=== PATIENT | female | born 1960 | race Caucasian/White ===

== ENCOUNTER 2020-04-11 08:32 | Outpatient (REF) | payer OTHER, SELFPAY ==
[2020-04-11 11:56] LABS: Basophils Percent Auto 0.6 % (0-2); Eosinophils Absolute Auto 0.2 X10*3/uL (0.0-0.4); Eosinophils Percent Auto 2.6 % (0-4); Hematocrit 42.5 % (37-47); Hemoglobin 14.3 g/dl (12.0-16.0); Imm Gran Abs Auto 0.03 X10*3/uL (0.00-0.03); Imm Gran Pct Auto 0.4 % (0.0-0.4); Lymphocytes Absolute Auto 1.6 X10*3/uL (1.2-4.9); Lymphocytes Percent Auto 23.1 % (20-40); MANUAL DIFF FLAG NO; Mean Corpuscular HGB Conc 33.6 g/dl (31.0-35.0); Mean Corpuscular Hemoglobin 30.4 pg (27.0-33.0); Mean Corpuscular Volume 90.4 fL (80-98); Mean Platelet Volume 10.2 fL (9.4-12.3); Monocytes Absolute Auto 0.6 X10*3/uL (0.1-1.2); Monocytes Percent Auto 8.7 % (2-11); Neutrophils Absolute Auto 4.5 X10*3/uL (2.0-8.3); Neutrophils Percent Auto 64.6 % (45-73); Platelet Count 329 X10*3/uL (160-400); Red Cell Distribution Width 12.7 % (11.0-16.0)
[2020-04-11 12:25] LABS: C Reactive Protein 1.02 mg/dL (< or = 0.50)
[2020-04-12 21:31] LABS: EBV-NA IgG Index <18.00 U/mL
[2020-04-12 23:27] LABS: Anti Nuclear Antibody Screen POSITIVE (NEGATIVE)
== END 2020-04-11 08:33 | disposition home or self-care (01) ==
LOC: HO.MANLDS 08:32
PROVIDERS: PCP Internal Medicine; Visit Provider Internal Medicine
DX: B27.00 Gammaherpesviral mononucleosis without complication (principal)
CPT/HCPCS: 36415; 85025; 86038; 86039; 86140; 86664; 86665

== ENCOUNTER 2020-05-30 09:42 | Outpatient (REF) | payer OTHER, SELFPAY ==
[2020-05-31 21:42] LABS: EBV-NA IgG Index <18.00 U/mL
== END 2020-05-30 09:43 | disposition home or self-care (01) ==
LOC: HO.MANLDS 09:42
PROVIDERS: PCP Physician Assistant; Visit Provider Physician Assistant
DX: R53.83 Other fatigue (principal)
CPT/HCPCS: 86664; 86665

== ENCOUNTER 2020-06-06 14:22 | Outpatient (REF) | payer OTHER, SELFPAY ==
[2020-06-06 18:36] LABS: SARS COV2 IgG Negative (Negative)
== END 2020-06-06 14:23 | disposition home or self-care (01) ==
LOC: HO.MANLDS 14:22
PROVIDERS: PCP Internal Medicine; Visit Provider Internal Medicine
DX: R43.1 Parosmia (principal)
CPT/HCPCS: 86769

== ENCOUNTER 2020-10-14 09:01 | Outpatient (REF) | payer OTHER, SELFPAY ==
[2020-10-14 10:56] LABS: MANUAL DIFF FLAG NO
[2020-10-14 11:05] LABS: Basophils Percent Auto 0.6 % (0-2); Eosinophils Absolute Auto 0.2 X10*3/uL (0.0-0.4); Eosinophils Percent Auto 3.4 % (0-4); Hematocrit 42.9 % (37-47); Hemoglobin 14.1 g/dl (12.0-16.0); Imm Gran Abs Auto 0.03 X10*3/uL (0.00-0.03); Imm Gran Pct Auto 0.4 % (0.0-0.4); Lymphocytes Absolute Auto 1.6 X10*3/uL (1.2-4.9); Lymphocytes Percent Auto 23.8 % (20-40); Mean Corpuscular HGB Conc 32.9 g/dl (31.0-35.0); Mean Corpuscular Hemoglobin 28.6 pg (27.0-33.0); Mean Platelet Volume 10.2 fL (9.4-12.3); Monocytes Absolute Auto 0.5 X10*3/uL (0.1-1.2); Monocytes Percent Auto 7.9 % (2-11); Neutrophils Absolute Auto 4.3 X10*3/uL (2.0-8.3); Neutrophils Percent Auto 63.9 % (45-73); Platelet Count 385 X10*3/uL (160-400); Red Blood Count 4.93 X10*6/uL (4.20-5.50); Red Cell Distribution Width 12.7 % (11.0-16.0); White Blood Count 6.7 X10*3/uL (4.8-10.8)
[2020-10-14 11:12] LABS: Estimated Average Glucose 111 mg/dL; Hemoglobin A1c % 5.5 %
[2020-10-14 12:07] LABS: Ferritin 93 ng/mL (10-250); Free T4 (Free Thyroxine) 1.01 ng/dL (0.71-1.85); Thyroid Stimulating Hormone 1.98 uIU/mL (0.32-4.0)
[2020-10-14 12:08] LABS: Alanine Aminotransferase 13 U/L (0-31); Albumin Level 4.4 g/dL (3.5-5.0); Alkaline Phosphatase 78 U/L (39-117); Anion Gap 12 (12-20); Aspartate Amino Transferase 16 U/L (5-31); Bilirubin Total 0.5 mg/dL (0.0-1.0); Blood Urea Nitrogen 16 mg/dL (9-16); Calcium 9.1 mg/dL (8.4-10.2); Carbon Dioxide 29 mmol/L (22-29); Chloride 102 mmol/L (96-108); Cholesterol 172 mg/dL; Estimated Glomerular Filt Rate > 60; Glucose Fasting 87 mg/dL (60-99); HDL Cholesterol 39 mg/dL; Iron 87 mcg/dL (30-160); LDL Cholesterol Calculated 115 mg/dl; Percent Iron Saturation 26 % (15-50); Potassium 4.1 mmol/L (3.3-5.1); Sodium 139 mmol/L (135-145); Total Iron Binding Capacity 331 mcg/dL (228-428); Total Protein 6.8 g/dL (6.5-8.0); Triglycerides 93 mg/dL; Unsaturated Iron Binding 244 ug/dL
[2020-10-14 12:24] LABS: Vitamin B12 > 2000 pg/mL (200-900)
[2020-10-15 05:51] LABS: EBV-VCA IgG Ab >750.00 U/mL
[2020-10-17 13:43] LABS: Calcium (PTHI) 9.3 mg/dL (8.6-10.4); PTHI 73 pg/mL (14-64)
== END 2020-10-14 09:02 | disposition home or self-care (01) ==
LOC: HO.MANLDS 09:01
PROVIDERS: PCP Internal Medicine; Visit Provider Internal Medicine
DX: R53.83 Other fatigue (principal); E78.00 Pure hypercholesterolemia, unspecified; R73.9 Hyperglycemia, unspecified; E83.52 Hypercalcemia
CPT/HCPCS: 36415; 80053; 80061; 82607; 82728; 83036; 83540; 83970; 84439; 84443; 85025; 86664; 86665

== ENCOUNTER 2020-11-30 11:34 | Outpatient (REF) | payer OTHER, SELFPAY ==
[2020-11-30 13:12] LABS: C Reactive Protein 3.31 mg/dL (< or = 0.50)
[2020-11-30 13:28] LABS: Free T4 (Free Thyroxine) 1.03 ng/dL (0.71-1.85); Thyroid Stimulating Hormone 2.01 uIU/mL (0.32-4.0)
== END 2020-11-30 11:35 | disposition home or self-care (01) ==
LOC: HO.MANLDS 11:34
PROVIDERS: PCP Physician Assistant; Visit Provider Physician Assistant
DX: R53.83 Other fatigue (principal)
CPT/HCPCS: 36415; 84439; 84443; 86140; 86664; 86665

== ENCOUNTER 2021-03-22 11:18 | Outpatient (REF) | payer OTHER, SELFPAY ==
[2021-03-22 12:46] LABS: MANUAL DIFF FLAG NO
[2021-03-22 12:52] LABS: Basophils Percent Auto 0.4 % (0-2); Eosinophils Absolute Auto 0.1 X10*3/uL (0.0-0.4); Eosinophils Percent Auto 1.7 % (0-4); Hemoglobin 14.8 g/dl (12.0-16.0); Imm Gran Abs Auto 0.03 X10*3/uL (0.00-0.03); Imm Gran Pct Auto 0.4 % (0.0-0.4); Lymphocytes Absolute Auto 1.8 X10*3/uL (1.2-4.9); Lymphocytes Percent Auto 23.6 % (20-40); Mean Corpuscular HGB Conc 32.9 g/dl (31.0-35.0); Mean Corpuscular Hemoglobin 29.2 pg (27.0-33.0); Mean Corpuscular Volume 88.9 fL (80-98); Mean Platelet Volume 10.6 fL (9.4-12.3); Monocytes Absolute Auto 0.6 X10*3/uL (0.1-1.2); Monocytes Percent Auto 7.9 % (2-11); Platelet Count 341 X10*3/uL (160-400); Red Blood Count 5.06 X10*6/uL (4.20-5.50); Red Cell Distribution Width 13.2 % (11.0-16.0); White Blood Count 7.6 X10*3/uL (4.8-10.8)
[2021-03-22 13:23] LABS: Alanine Aminotransferase 15 U/L (0-31); Albumin Level 4.4 g/dL (3.5-5.0); Alkaline Phosphatase 79 U/L (39-117); Anion Gap 12 (12-20); Aspartate Amino Transferase 16 U/L (5-31); Bilirubin Total 0.6 mg/dL (0.0-1.0); Blood Urea Nitrogen 16 mg/dL (9-16); Calcium 9.3 mg/dL (8.4-10.2); Carbon Dioxide 28 mmol/L (22-29); Chloride 105 mmol/L (96-108); Estimated Glomerular Filt Rate > 60; Glucose Random 83 mg/dL (60-115); Iron 86 mcg/dL (30-160); Percent Iron Saturation 24 % (15-50); Potassium 3.9 mmol/L (3.3-5.1); Sodium 141 mmol/L (135-145); Total Iron Binding Capacity 353 mcg/dL (228-428); Total Protein 6.9 g/dL (6.5-8.0); Unsaturated Iron Binding 267 ug/dL
[2021-03-22 13:46] LABS: Ferritin 58 ng/mL (10-250); Free T4 (Free Thyroxine) 1.08 ng/dL (0.71-1.85); Thyroid Stimulating Hormone 0.78 uIU/mL (0.32-4.0); Vitamin D 25-OH Total 38.5 ng/mL (>30)
[2021-03-22 14:04] LABS: Folate 9.3 ng/mL (> or = 4.0); Vitamin B12 336 pg/mL (200-900)
[2021-03-22 14:13] LABS: Erythrocyte Sedimentation Rate 2 MM/HR (0-20)
[2021-03-23 08:30] LABS: Lyme Abs Screen <0.90 index
[2021-03-24 12:12] LABS: Calcium (PTHI) 9.3 mg/dL (8.6-10.4); PTHI 70 pg/mL (14-64)
== END 2021-03-22 11:19 | disposition home or self-care (01) ==
LOC: HO.MANLDS 11:18
PROVIDERS: PCP Physician Assistant; Visit Provider Physician Assistant
DX: R53.83 Other fatigue (principal)
CPT/HCPCS: 36415; 80053; 82306; 82607; 82728; 82746; 83540; 83970; 84439; 84443; 85025; 85652; 86140; 86617; 86618; 86664; 86665

== ENCOUNTER 2021-08-16 08:55 | Outpatient (REF) | payer OTHER, SELFPAY ==
[2021-08-18 07:12] LABS: Thyroglobulin Antibodies <1 IU/mL (< or = 1); Thyroid Peroxidase Antibodies 1 IU/mL (<9)
[2021-08-22 10:06] LABS: Thyrotropin Receptor Antibody <1.00 IU/L (<=2.00)
== END 2021-08-16 08:56 | disposition home or self-care (01) ==
LOC: HO.MANLDS 08:55
PROVIDERS: PCP Internal Medicine; Visit Provider Internal Medicine
DX: E02 Subclinical iodine-deficiency hypothyroidism (principal)
CPT/HCPCS: 36415; 83520; 84443; 86376; 86800

== ENCOUNTER 2021-11-08 09:35 | Outpatient (REF) | payer OTHER, SELFPAY ==
[2021-11-08 11:01] LABS: Hematocrit 45.8 % (37.0-47.0); Hemoglobin 15.3 g/dl (12.0-16.0); Mean Corpuscular HGB Conc 33.4 g/dl (31.0-35.0); Mean Corpuscular Hemoglobin 30.1 pg (27.0-33.0); Mean Platelet Volume 10.3 fL (9.4-12.3); Platelet Count 337 X10*3/uL (160-400); Red Blood Count 5.09 X10*6/uL (4.20-5.50); Red Cell Distribution Width 13.1 % (11.0-16.0); White Blood Count 8.2 X10*3/uL (4.8-10.8)
[2021-11-08 11:15] LABS: Alanine Aminotransferase 17 U/L (0-31); Albumin Level 4.5 g/dL (3.5-5.0); Alkaline Phosphatase 78 U/L (39-117); Anion Gap 13 (12-20); Aspartate Amino Transferase 18 U/L (5-31); Bilirubin Total 0.7 mg/dL (0.0-1.0); Blood Urea Nitrogen 17 mg/dL (9-16); Calcium 9.7 mg/dL (8.4-10.2); Carbon Dioxide 29 mmol/L (22-29); Chloride 101 mmol/L (96-108); Estimated Glomerular Filt Rate 57; Glucose Fasting 89 mg/dL (60-99); Potassium 4.3 mmol/L (3.3-5.1); Sodium 139 mmol/L (135-145); Total Protein 7.2 g/dL (6.5-8.0)
[2021-11-08 11:53] LABS: Erythrocyte Sedimentation Rate 3 MM/HR (0-20)
== END 2021-11-08 09:36 | disposition home or self-care (01) ==
LOC: HO.MANLDS 09:35
PROVIDERS: PCP Internal Medicine; Visit Provider Internal Medicine
DX: R51.9 Headache, unspecified (principal)
CPT/HCPCS: 36415; 80053; 85027; 85652

== ENCOUNTER 2022-02-26 14:08 | Outpatient (REF) | payer OTHER, SELFPAY ==
[2022-02-26 16:27] LABS: MANUAL DIFF FLAG NO
[2022-02-26 16:29] LABS: Basophils Percent Auto 0.5 % (0-2); Eosinophils Absolute Auto 0.1 X10*3/uL (0.0-0.4); Eosinophils Percent Auto 1.8 % (0-4); Hematocrit 44.6 % (37.0-47.0); Hemoglobin 14.6 g/dl (12.0-16.0); Imm Gran Abs Auto 0.03 X10*3/uL (0.00-0.03); Imm Gran Pct Auto 0.4 % (0.0-0.4); Lymphocytes Absolute Auto 1.6 X10*3/uL (1.2-4.9); Lymphocytes Percent Auto 21.2 % (20-40); Mean Corpuscular HGB Conc 32.7 g/dl (31.0-35.0); Mean Corpuscular Hemoglobin 29.6 pg (27.0-33.0); Mean Corpuscular Volume 90.3 fL (80.0-98.0); Mean Platelet Volume 10.2 fL (9.4-12.3); Monocytes Absolute Auto 0.6 X10*3/uL (0.1-1.2); Monocytes Percent Auto 7.7 % (2-11); Neutrophils Percent Auto 68.4 % (45-73); Platelet Count 327 X10*3/uL (160-400); Red Blood Count 4.94 X10*6/uL (4.20-5.50); Red Cell Distribution Width 12.7 % (11.0-16.0); White Blood Count 7.4 X10*3/uL (4.8-10.8)
[2022-02-26 16:37] LABS: Prothrombin Time 11.2 SEC (10.0-13.1)
[2022-02-26 16:40] LABS: Partial Thromboplastin Time 29.7 SEC (26.0-36.4)
[2022-02-26 16:45] LABS: Alanine Aminotransferase 17 U/L (0-31); Albumin Level 4.4 g/dL (3.5-5.0); Alkaline Phosphatase 79 U/L (39-117); Anion Gap 14 (12-20); Aspartate Amino Transferase 18 U/L (5-31); Bilirubin Total 0.5 mg/dL (0.0-1.0); Blood Urea Nitrogen 15 mg/dL (9-16); Calcium 9.3 mg/dL (8.4-10.2); Carbon Dioxide 30 mmol/L (22-29); Chloride 101 mmol/L (96-108); Estimated Glomerular Filt Rate > 60; Glucose Random 93 mg/dL (60-115); Potassium 3.9 mmol/L (3.3-5.1); Sodium 141 mmol/L (135-145); Total Protein 6.7 g/dL (6.5-8.0)
[2022-02-26 16:51] LABS: Estimated Average Glucose 103 mg/dL; Hemoglobin A1c % 5.2 %
== END 2022-02-26 14:09 | disposition home or self-care (01) ==
LOC: HO.MANLDS 14:08
PROVIDERS: Visit Provider Physician Assistant
DX: I48.0 Paroxysmal atrial fibrillation (principal)
CPT/HCPCS: 36415; 80053; 83036; 85025; 85610; 85730

== ENCOUNTER 2022-10-15 10:46 | Outpatient (REF) | payer OTHER, SELFPAY ==
[2022-10-15 12:38] LABS: MANUAL DIFF FLAG NO
[2022-10-15 12:47] LABS: Basophils Percent Auto 0.2 % (0-2); Hemoglobin 16.2 g/dl (12.0-16.0); Imm Gran Abs Auto 0.05 X10*3/uL (0.00-0.03); Imm Gran Pct Auto 0.4 % (0.0-0.4); Lymphocytes Percent Auto 7.8 % (20-40); Mean Corpuscular HGB Conc 34.5 g/dl (31.0-35.0); Mean Corpuscular Hemoglobin 30.5 pg (27.0-33.0); Mean Corpuscular Volume 88.5 fL (80.0-98.0); Monocytes Absolute Auto 0.5 X10*3/uL (0.1-1.2); Monocytes Percent Auto 3.9 % (2-11); Neutrophils Absolute Auto 10.7 x10*3/uL (2.0-8.3); Neutrophils Percent Auto 87.7 % (45-73); Platelet Count 402 X10*3/uL (160-400); Red Blood Count 5.31 X10*6/uL (4.20-5.50); White Blood Count 12.2 X10*3/uL (4.8-10.8)
[2022-10-15 13:00] LABS: Alanine Aminotransferase 23 U/L (0-31); Albumin Level 4.4 g/dL (3.5-5.0); Alkaline Phosphatase 77 U/L (39-117); Anion Gap 14 (12-20); Aspartate Amino Transferase 24 U/L (5-31); Bilirubin Total 0.7 mg/dL (0.0-1.0); Blood Urea Nitrogen 17 mg/dL (9-16); C Reactive Protein 0.45 mg/dL (< or = 0.50); Calcium 9.4 mg/dL (8.4-10.2); Carbon Dioxide 26 mmol/L (22-29); Chloride 102 mmol/L (96-108); Estimated Glomerular Filt Rate 56; Glucose Random 115 mg/dL (60-115); Potassium 4.4 mmol/L (3.3-5.1); Sodium 138 mmol/L (135-145); Total Protein 6.8 g/dL (6.5-8.0)
[2022-10-15 13:22] LABS: Erythrocyte Sedimentation Rate 2 MM/HR (0-20)
== END 2022-10-15 10:47 | disposition home or self-care (01) ==
LOC: HO.MANLDS 10:46
PROVIDERS: Visit Provider Internal Medicine
DX: M25.551 Pain in right hip (principal)
CPT/HCPCS: 36415; 80053; 85025; 85652; 86140

== ENCOUNTER 2022-12-17 13:29 | Outpatient (REF) | payer OTHER, SELFPAY ==
[2022-12-17 17:52] LABS: MANUAL DIFF FLAG NO
[2022-12-17 17:57] LABS: Basophils Percent Auto 0.4 % (0-2); Eosinophils Absolute Auto 0.1 X10*3/uL (0.0-0.4); Eosinophils Percent Auto 1.1 % (0-4); Hematocrit 46.4 % (37.0-47.0); Hemoglobin 15.4 g/dl (12.0-16.0); Imm Gran Abs Auto 0.02 X10*3/uL (0.00-0.03); Imm Gran Pct Auto 0.2 % (0.0-0.4); Lymphocytes Absolute Auto 1.4 X10*3/uL (1.2-4.9); Mean Corpuscular HGB Conc 33.2 g/dl (31.0-35.0); Mean Corpuscular Hemoglobin 30.9 pg (27.0-33.0); Mean Corpuscular Volume 93.2 fL (80.0-98.0); Mean Platelet Volume 10.3 fL (9.4-12.3); Monocytes Absolute Auto 0.6 X10*3/uL (0.1-1.2); Monocytes Percent Auto 6.8 % (2-11); Neutrophils Absolute Auto 6.2 x10*3/uL (2.0-8.3); Neutrophils Percent Auto 74.5 % (45-73); Platelet Count 368 X10*3/uL (160-400); Red Blood Count 4.98 X10*6/uL (4.20-5.50); Red Cell Distribution Width 13.2 % (11.0-16.0); White Blood Count 8.4 X10*3/uL (4.8-10.8)
[2022-12-17 18:14] LABS: Estimated Average Glucose 91 mg/dL; Hemoglobin A1c % 4.8 %
[2022-12-17 18:17] LABS: Alanine Aminotransferase 13 U/L (0-31); Albumin Level 4.3 g/dL (3.5-5.0); Alkaline Phosphatase 82 U/L (39-117); Anion Gap 16 (12-20); Aspartate Amino Transferase 16 U/L (5-31); Bilirubin Total 0.8 mg/dL (0.0-1.0); Blood Urea Nitrogen 17 mg/dL (9-16); C Reactive Protein 0.77 mg/dL (< or = 0.50); Calcium 9.5 mg/dL (8.4-10.2); Carbon Dioxide 27 mmol/L (22-29); Chloride 101 mmol/L (96-108); Estimated Glomerular Filt Rate > 60; Glucose Random 108 mg/dL (60-115); Iron 126 mcg/dL (30-160); Percent Iron Saturation 42 % (15-50); Potassium 4.3 mmol/L (3.3-5.1); Sodium 140 mmol/L (135-145); Total Iron Binding Capacity 299 mcg/dL (228-428); Total Protein 6.6 g/dL (6.5-8.0); Unsaturated Iron Binding 173 ug/dL
[2022-12-17 18:48] LABS: Ferritin 113 ng/mL (10-250); Free T4 (Free Thyroxine) 1.16 ng/dL (0.71-1.85); Thyroid Stimulating Hormone 0.87 uIU/mL (0.32-4.0); Vitamin B12 989 pg/mL (200-900); Vitamin D 25-OH Total 45.7 ng/mL (>30)
[2022-12-17 18:59] LABS: Erythrocyte Sedimentation Rate 4 MM/HR (0-20)
== END 2022-12-17 13:30 | disposition home or self-care (01) ==
LOC: HO.MANLDS 13:29
PROVIDERS: Visit Provider Physician Assistant
DX: R53.83 Other fatigue (principal); E55.9 Vitamin D deficiency, unspecified; R73.01 Impaired fasting glucose; D51.9 Vitamin B12 deficiency anemia, unspecified; Z13.21 Encounter for screening for nutritional disorder
CPT/HCPCS: 36415; 80053; 82306; 82607; 82728; 82746; 83036; 83540; 84439; 84443; 85025; 85652; 86140

== ENCOUNTER 2023-09-10 09:00 | Outpatient (REF) | payer OTHER, SELFPAY ==
[2023-09-10 13:35] LABS: Appearance Urine Clear; Color Urine Yellow; Glucose Urine UA Negative (Negative); Leukocyte Esterase Urine Negative (Negative); Nitrite Urine Negative (Negative); PH 7.5 (5.0-9.0); Specific Gravity - Urine 1.025 (1.005-1.025); Urine Blood Negative (Negative); Urine Ketones Trace mg/dL (Negative); Urine Protein Negative (Neg-Trace)
== END 2023-09-10 09:01 | disposition home or self-care (01) ==
LOC: HO.MANLNP 09:00
PROVIDERS: Visit Provider Physician Assistant
DX: R30.9 Painful micturition, unspecified (principal)
CPT/HCPCS: 81003

== ENCOUNTER 2024-04-08 13:44 | Outpatient (REF) | payer OTHER, SELFPAY ==
[2024-04-08 17:56] LABS: MANUAL DIFF FLAG NO
[2024-04-08 18:12] LABS: Basophils Percent Auto 0.6 % (0-2); Eosinophils Absolute Auto 0.1 X10*3/uL (0.0-0.4); Eosinophils Percent Auto 1.7 % (0-4); Hematocrit 41.6 % (37.0-47.0); Hemoglobin 14.1 g/dl (12.0-16.0); Imm Gran Abs Auto 0.02 X10*3/uL (0.00-0.03); Imm Gran Pct Auto 0.3 % (0.0-0.4); Lymphocytes Absolute Auto 1.5 X10*3/uL (1.2-4.9); Lymphocytes Percent Auto 23.7 % (20-40); Mean Corpuscular HGB Conc 33.9 g/dl (31.0-35.0); Mean Corpuscular Hemoglobin 30.8 pg (27.0-33.0); Mean Corpuscular Volume 90.8 fL (80.0-98.0); Mean Platelet Volume 9.9 fL (9.4-12.3); Monocytes Absolute Auto 0.5 X10*3/uL (0.1-1.2); Monocytes Percent Auto 8.3 % (2-11); Neutrophils Absolute Auto 4.2 x10*3/uL (2.0-8.3); Neutrophils Percent Auto 65.4 % (45-73); Platelet Count 293 X10*3/uL (160-400); Red Blood Count 4.58 X10*6/uL (4.20-5.50); Red Cell Distribution Width 12.2 % (11.0-16.0); White Blood Count 6.4 X10*3/uL (4.8-10.8)
[2024-04-08 18:31] LABS: Rheumatoid Factor < 13.0 IU/mL (<15.0)
[2024-04-08 18:35] LABS: Alanine Aminotransferase 18 U/L (0-31); Albumin Level 4.2 g/dL (3.5-5.0); Alkaline Phosphatase 68 U/L (39-117); Anion Gap 12 (12-20); Aspartate Amino Transferase 25 U/L (5-31); Bilirubin Total 0.6 mg/dL (0.0-1.0); Blood Urea Nitrogen 18 mg/dL (9-16); C Reactive Protein 0.64 mg/dL (< or = 0.50); Calcium 8.9 mg/dL (8.4-10.2); Carbon Dioxide 30 mmol/L (22-29); Chloride 98 mmol/L (96-108); Estimated Glomerular Filt Rate > 60; Glucose Random 76 mg/dL (60-115); Phosphorus 3.4 mg/dL (2.7-4.5); Potassium 3.6 mmol/L (3.3-5.1); Sodium 136 mmol/L (135-145); Total Protein 6.5 g/dL (6.5-8.0); Uric Acid 5.6 mg/dL (2.4-5.7)
[2024-04-08 19:09] LABS: Erythrocyte Sedimentation Rate 2 MM/HR (0-20)
[2024-04-09 05:58] LABS: Parathyroid Hormone Intact 83.5 pg/mL (8.7-77.1)
[2024-04-14 14:58] LABS: Cyclic Citrullinated Peptide <16 UNITS
[2024-04-15 12:33] LABS: Anti Nuclear Antibody Screen POSITIVE (NEGATIVE); Anti Nuclear Antibody Titer 1:40 titer
== END 2024-04-08 13:45 | disposition home or self-care (01) ==
LOC: HO.MANLDS 13:44
PROVIDERS: Visit Provider Physician Assistant
DX: M79.10 Myalgia, unspecified site (principal)
CPT/HCPCS: 36415; 80053; 82550; 83735; 83970; 84100; 84550; 85025; 85652; 86038; 86039; 86140; 86200; 86431

== ENCOUNTER 2025-04-30 12:15 | Outpatient (REF) | payer MEDICARE, OTHER, SELFPAY ==
--- OUTSIDE RECORDS SUMMARY | 2025-04-30 14:21 | XMS_ITS | Encounter Summary ---
Author Organization [facility] Address [address] [place] [id number] Phone Care Team Providers Care Sales Representative Health Insurance Name Role Phone Royer Ross DO Primary Care Provider [phone] Susan Cerna Primary Care Provider [phone] Susan Cerna Primary Care Provider [phone] Encounter Details Date Type Department Care Team (Late st Contact Info) Description 03/17/2019 Ancillary Orders Virtual Department [address] [place] [address] Tori Polanco MD Breast screening Social History Tobacco Use Types Packs/Day Years Used Date Smoking Tobacco: Former Smokeless Tobacco: Former Alcohol Use Standard Drinks/Week Comments No 0 (1 standard drink = 0.6 oz pur e alcohol) Comments Unknown Sex and Gender Information Value Date Recorded Sex Assigned at Not on file Legal Sex Female 9:50 PM EDT Gender Identity Not on file Sexual Orientation Not on file documented as of this encounter Plan of Treatment Not on file documented as of this encounter Results * BI MAMMOGRAM SCREENING WITH TOMOSYNTHESIS WITH CAD (BILATERAL) (03/18/2019 10:05 AM EDT) Anatomical Region Laterality Modality Breast Left, Breast Right, Breast Bilateral Bila teral Mammography 03/18/2019 1:03 PM EDT Impressions 03/18/2019 1:06 PM EDT No mammographic evidence of malignancy. Routine annual screening mammography recommended. BI-RADS CATEGORY: 2 - Benign finding. DENSITY: The breast tissue is almost entirely fat. POS - [facility] Narrative 03/18/2019 1:06 PM EDT Standard digital full-field 2-D C view and two-plane tomographic imaging was performed and compared with multiple prior studies, most recently 11/16/2014, with utilization of computer-aided detection. The breasts are almost entirely fatty. The stromal markings are essentially unchanged in overall appearance and distribution. No dominant spiculated mass, suspicious clustered microcalcifications, or focal zone of pathologic skin thickening or retraction are noted to have arisen in the interim. Scattered benign-appearing microcalcifications, number of which are intradermal, again noted bilaterally. Procedure Note Tori Rubio MD - 03/18/2019 Standard digital full-field 2-D C view and two-plane tomographic imagingwas performed and compared with multiple prior studies, most szsoilzm41/12/2015, with utilization of computer-aided detection. The breasts are almost entirely fatty. The stromal markings areessentially unchanged in overall appearance and distribution. No dominantspiculated mass, suspicious clustered microcalcifications, or focal zoneof pathologic skin thickening or retraction are noted to have arisen inthe interim. Scattered benign-appearing microcalcifications, number ofwhich are intradermal, again noted bilaterally. IMPRESSION: No mammographic evidence of malignancy. Routine annual screeningmammography recommended. BI-RADS CATEGORY: 2 - Benign finding. DENSITY: The breast tissue is almost entirely fat. POS - [facility] Tori Polanco MD IMG MG EXAMS Final Resul t documented in this encounter Visit Diagnoses Diagnosis Breast screening Breast screening, unspecified Breast screening Breast screening, unspecified documented in this encounter Additional Health Concerns Infection Onset Date Last Indicated Resolved Time CoV-Exposed Comment:Recent close contact documented in the COVID-19 PCR/PRO order 03/14/2021 03/14/2021 03/29/2021 1:22 AM E DT CoV-Exposed Comment:Recent close contact documented in the COVID-19 PCR/PRO order 04/14/2021 04/14/2021 04/29/2021 1:22 AM E DT CoV-Risk 04/28/2021 04/28/2021 05/08/2021 1:22 AM EDT CoV-Exposed Comment:Recent close contact documented in the COVID-19 PCR/PRO order 06/05/2021 06/05/2021 06/20/2021 1:[address] CoV-Exposed Comment:Positive COVID-19 07/11/2021 07/11/2021 07/18/2021 6:0 5 PM EST COVID-19 07/17/2021 07/17/2021 08/07/2021 1:23 AM EST documented as of this encounter Care Teams Sales Representative Health Insurance Relationship Specialty Start Date End Date Royer Ross DO PCP - General 04/25/17 11/10/20 Susan Cerna PA [address] [place] [address] PCP - General 11/11/20 02/04/22 Susan Cerna PA [address] [place] [address] PCP - General 02/05/22 documented as of this encounter Additional Source Comments The information contained in this document represents components of the legal health record. It is not the complete legal health record.[facility]
--- OUTSIDE RECORDS SUMMARY | 2025-04-30 14:21 | XMS_ITS | Clinical Summary ---
Author Organization [facility] Address [address] [address] Phone Care Team Providers Care Diamond Powder Technician Name Role Phone Florinda Cerna Primary Care Provider Allergies Active Allergy Reactions Criticality Noted Date Comments Codeine Nausea and/or Vomiting 09/19/2021 Hydrocodone GI Upset 02/19/2018 Hydrocodone-Acetaminophen GI Upset 09/19/2021 Medications hydroCHLOROthia zide (HYDRODIURIL) 25 MG tablet 50 mg. Active ALPRAZolam (XANAX) 0.5 MG tablet alprazolam 0.5 mg tablet TAKE 1 TABLET BY MOUTH THREE TIMES DAILY NEEDED Active dexlansoprazole (DEXILANT) 60 mg capsule Dexilant 60 mg capsule, delayed release Active famotidine (PEPCID) 40 MG tablet Take 40 mg by mouth. Active metoprolol tartrate (LOPRESSOR) 25 MG tablet Take 25 mg by mouth 2 (two) times a day. Active atenolol (TENORMIN) 50 mg tablet atenolol 50 mg tablet Take 2 tablets twice a day by oral route. 3 Active estrogens, conjugated,-met hylTESTOSTERone (ESTRATEST HS) 0.625-1.25 mg per tabletIndicatio ns:Menopausal hot flushes take 1 tablet by mouth every day 30 tablet 5 4 Active zolpidem (AMBIEN) 10 mg tablet Take 10 mg by mouth nightly at bedtime as needed for sleep. 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 Atrial fibrillation 11/25/2020 Arthralgia of multiple sites, bilateral 11/16/19 Malaise and fatigue 11/15/2020 Thrombocytosis 10/22/2020 Elevated C-reactive protein (CRP) 10/22/2020 Pericarditis 10/22/2020 Overview (09/19/2021): Likely post-viral Gastroesophageal reflux disease 05/03/2020 Chondromalacia of patella 05/03/2020 Low back pain 05/03/2020 Inflammatory arthritis 04/05/2020 Assessment & Plan (04/05/2020 2:53 PM EDT): Otherwise healthy middle-aged woman with history of hypertension hypothyroidism and osteoarthritis comes in with questions on recurrent worsening osteoarthritic pains in both large and small joints and wondering whether she may have another connective tissue disease underlying this. Undefined any stigmata on her exam suggesting rheumatoid disease but a work-up for that as well as seronegative spondyloarthropathy will be undertaken. We had a short discussion today concerning other possibilities which would be a more aggressive systemic osteoarthritis may be secondarily to chondrocalcinosis or hyperuricemia. Amyloidosis can give a presentation such as this as well. Appropriate labs were sent off today. She will continue on meloxicam as she has been doing rather well with this will follow-up to discuss the findings by phone call and see her back as needed. Diverticulosis of large intestine without hemorr jose luis 05/07/2018 Irritable bowel syndrome 05/07/2018 History of total left knee replacement 8 Anxiety 10/09/2017 History of total right knee replacement 10/10/19 18 Impaired fasting glucose 10/09/2017 Insomnia 10/09/2017 Rotator cuff injury 10/09/2017 Essential hypertension 07/10/2017 Vaginal enterocele 10/09/2013 Overview (09/19/2021): With vault prolapse. The patient is s/p daVinci sacrocolpopexy with Dr. Dean. Exam 04/2020 shows enterocele to +1 and cuff to -2. Patient asymptomatic. History of Trung-Segura virus infection Assessment & Plan (12/13/2020 1:08 PM EDT): I reviewed infectious disease notes, cardiology notes, echocardiogram, and chest CT. I think that her acute presentation of fever and pleurisy with pericarditis is entirely consistent with EBV infection. Symptoms have markedly diminished and her acute phase reactants are not elevated and though she does have a low titer positive antinuclear antibody there are no other stigmata on exam or biochemical or serologic abnormalities indicating systemic lupus or another collagen vascular disorder. She will follow up with cardiology as well as with her primary care physician and we will see how she does off the colchicine and she may call me at any time for follow- up. Hospital Outpatient Visit on 11/15/2020 Component Date Value Ref Range Status CMV IGM ANTIBODY 11/15/2020 Negative Negative Final CYTOMEGALOVIRUS IGG 11/15/2020 Negative Negative Final C REACTIVE PROTEIN 11/15/2020 34.1* 0.0 - 4.0 mg/L Final FERRITIN 11/15/2020 372* 13 - 150 ug/L Final ESR 11/15/2020 11 0 - 30 mm/h Final B.HENSELAE AB, IGG 11/15/2020 <1:128 <1:128 titer Final B.HENSELAE AB, IGM 11/15/2020 <1:20 <1:20 titer Final B.CHOUDHARY AB, IGG 11/15/2020 <1:128 <1:128 titer Final B.CHOUDHARY AB, IGM 11/15/2020 <1:20 <1:20 titer Final Comment: (NOTE) ADDITIONAL INFORMATION This test was developed and its performance characteristics determined by [facility] in a manner consistent with CLIA requirements. This test has not been cleared or approved by the U.S. Food and Drug Administration. A/G Ratio 11/15/2020 1.20 1.00 - 4.80 RATIO Final Bilirubin (Indirect) 11/15/2020 NOT CALCULATED 0 - 1.5 mg/dL Final SODIUM 11/15/2020 136 133 - 146 mmol/L Final POTASSIUM 11/15/2020 4.9 3.3 - 5.1 mmol/L Final CHLORIDE 11/15/2020 94* 96 - 108 mmol/L Final CO2 11/15/2020 22 21 - 35 mmol/L Final BUN 11/15/2020 16 6 - 19 mg/dL Final CREATININE 11/15/2020 0.90 0.5 - 1.5 mg/dL Final GLUCOSE 11/15/2020 131* 70 - 99 mg/dL Final ALBUMIN 11/15/2020 4.2 3.9 - 4.8 g/dL Final TOTAL PROTEIN 11/15/2020 7.7 6.5 - 8.0 g/dL Final CALCIUM 11/15/2020 9.5 8.4 - 10.3 mg/dL Final ALKALINE PHOSPHATASE 11/15/2020 92 39 - 117 U/L Final TOTAL BILIRUBIN 11/15/2020 0.2 0.0 - 1.2 mg/dL Final AST 11/15/2020 34 0 - 37 U/L Final ALT 11/15/2020 42* 0 - 40 U/L Final GLOBULIN 11/15/2020 3.5 1 - 4.8 g/dL Final EGFR 11/15/2020 69 >59 mL/min/1.73m2 Final Estimated glomerular filtration rate calculated using the CKD-EPI equation. ANION GAP 11/15/2020 25* 10 - 20 mmol/L Final DIRECT BILIRUBIN 11/15/2020 <0.2 0 - 0.3 mg/dL Final Admission on 11/11/2020, Discharged on 11/11/2020 Component Date Value Ref Range Status WBC 11/11/2020 10.84 4.00 - 11.00 K/uL Final RBC 11/11/2020 4.23 3.72 - 5.30 M/uL Final HGB 11/11/2020 12.3 11.4 - 15.9 g/dL Final HCT 11/11/2020 37.7 34.2 - 46.8 % Final PLT 11/11/2020 575* 140 - 430 K/uL Final MCV 11/11/2020 89.1 78.0 - 97.0 fL Final MCH 11/11/2020 29.1 25.0 - 33.0 pg Final MCHC 11/11/2020 32.6 32.0 - 36.0 g/dL Final RDW 11/11/2020 12.7 11.0 - 16.0 % Final MPV 11/11/2020 9.0 8.4 - 12.8 fl Final NRBC 11/11/2020 0.00 0 /100 WBCs Final ABSOLUTE NRBC 11/11/2020 0.00 0 K/uL Final DIFF METHOD 11/11/2020 Auto Final NEUTS 11/11/2020 83.3* 43.0 - 75.0 % Final LYMPHS 11/11/2020 8.6* 18.2 - 47.4 % Final MONOS 11/11/2020 5.9 4.00 - 11.00 % Final EOS 11/11/2020 1.0 0.0 - 8.0 % Final BASOS 11/11/2020 0.6 0.0 - 2.0 % Final Granulocytes, immature (%) 11/11/2020 0.6 0.0 - 0.9 % Final ABSOLUTE NEUTS 11/11/2020 9.02* 1.80 - 7.70 K/uL Final ABSOLUTE LYMPHS 11/11/2020 0.93* 1.00 - 3.10 K/uL Final ABSOLUTE MONOS 11/11/2020 0.64 0.20 - 0.80 K/uL Final ABSOLUTE EOS 11/11/2020 0.11 0.00 - 0.80 K/uL Final ABSOLUTE BASOS 11/11/2020 0.07 0.00 - 0.09 K/uL Final Granulocytes, immature 11/11/2020 0.07* 0.00 - 0.05 K/uL Final T-SPOT.TB 11/11/2020 Negative SeeBelow Final Comment: (NOTE) Normal Value: Negative A negative test result does not exclude the possibility of exposure to or infection with Mycobacterium tuberculosis (M. tuberculosis). Patients with recent exposure to TB infected individuals exhibiting a negative T-SPOT.TB result should be considered for retesting within 6 weeks or if other relevant clinical symptoms indicate. Results from T-SPOT.TB testing must be used in conjunction with each individual's epidemiological history, current medical status, and results of other diagnostic evaluations. The T-SPOT.TB test is qualitative and results are reported as positive, borderline or negative, given that the test controls perform as expected. In line with the Centers for Disease Control and Prevention's 2010 recommendation to report quantitative measurements alongside the qualitative result, the laboratory provides spot counts for informational purposes only. The T-SPOT.TB test should not be interpreted as a quantitati ve test. Panel A Spot Count Corrected For N* 11/11/2020 0 Final Panel B Spot Count Corrected For N* 11/11/2020 0 Final Negative Control 11/11/2020 Passed Final Positive Control 11/11/2020 Passed Final Special Requests 11/11/2020 None Final BLOOD CULTURE 11/11/2020 NO GROWTH 5 DAYS Final Special Requests 11/11/2020 None Final BLOOD CULTURE 11/11/2020 Aerobic bottle: COAGULASE NEGATIVE STAPHYLOCOCCUS* Final BLOOD CULTURE 11/11/2020 Critical Result. Results called to and read back by: JAK Beaver, ED [id number]* Final ESR 11/11/2020 26 0 - 30 mm/h Final C REACTIVE PROTEIN 11/11/2020 99.6* 0.0 - 4.0 mg/L Final SODIUM 11/11/2020 137 133 - 146 mmol/L Final CHLORIDE 11/11/2020 97 96 - 108 mmol/L Final POTASSIUM 11/11/2020 4.8 3.3 - 5.1 mmol/L Final CO2 11/11/2020 29 21 - 35 mmol/L Final BUN 11/11/2020 16 6 - 19 mg/dL Final CREATININE 11/11/2020 0.80 0.5 - 1.5 mg/dL Final GLUCOSE 11/11/2020 107* 70 - 99 mg/dL Final CALCIUM 11/11/2020 9.8 8.4 - 10.3 mg/dL Final EGFR 11/11/2020 79 >59 mL/min/1.73m2 Final Estimated glomerular filtration rate calculated using the CKD-EPI equation. ANION GAP 11/11/2020 16 10 - 20 mmol/L Final COLOR 11/11/2020 Yellow Yellow Final CLARITY 11/11/2020 Clear Final GLUCOSE 11/11/2020 Negative Negative Final BILI 11/11/2020 Negative Negative Final KETONES 11/11/2020 Negative Negative Final SPECIFIC GRAVITY 11/11/2020 1.010 1.005 - 1.030 Final BLOOD 11/11/2020 Negative Negative Final PH 11/11/2020 7.0 5.0 - 8.0 Final Protein-UA 11/11/2020 Negative Negative Final NITRITE 11/11/2020 Negative Negative Final Leukocyte esterase, ur 11/11/2020 Negative Negative Final Ventricular Rate EKG/MIN 11/11/2020 102 BPM Final Atrial Rate 11/11/2020 102 BPM Final WV Interval 11/11/2020 154 ms Final QRS Duration 11/11/2020 82 ms Final QT Interval 11/11/2020 316 ms Final QTC Interval 11/11/2020 411 ms Final P [place] 11/11/2020 -2 degrees Final R Wave [place] 11/11/2020 -8 degrees Final T Wave [place] 11/11/2020 -23 degrees Final Hospital Outpatient Visit on 11/08/2020 Component Date Value Ref Range Status Special Requests 11/08/2020 None Final BLOOD CULTURE 11/08/2020 NO GROWTH 5 DAYS Final HAV TOTAL AB 11/08/2020 Reactive* NON-REACTIVE Final HBV SURFACE ANTIGEN 11/08/2020 NON-REACTIVE NON-REACTIVE Final HCV 11/08/2020 NON-REACTIVE NON-REACTIVE Final WBC 11/08/2020 13.03* 4.00 - 11.00 K/uL Final RBC 11/08/2020 4.36 3.72 - 5.30 M/uL Final HGB 11/08/2020 12.5 11.4 - 15.9 g/dL Final HCT 11/08/2020 38.2 34.2 - 46.8 % Final PLT 11/08/2020 565* 140 - 430 K/uL Final MCV 11/08/2020 87.6 78.0 - 97.0 fL Final MCH 11/08/2020 28.7 25.0 - 33.0 pg Final MCHC 11/08/2020 32.7 32.0 - 36.0 g/dL Final RDW 11/08/2020 12.6 11.0 - 16.0 % Final MPV 11/08/2020 9.3 8.4 - 12.8 fl Final NRBC 11/08/2020 0.00 0 /100 WBCs Final ABSOLUTE NRBC 11/08/2020 0.00 0 K/uL Final DIFF METHOD 11/08/2020 Auto Final NEUTS 11/08/2020 83.6* 43.0 - 75.0 % Final LYMPHS 11/08/2020 6.0* 18.2 - 47.4 % Final MONOS 11/08/2020 8.7 4.00 - 11.00 % Final EOS 11/08/2020 0.5 0.0 - 8.0 % Final BASOS 11/08/2020 0.4 0.0 - 2.0 % Final Granulocytes, immature (%) 11/08/2020 0.8 0.0 - 0.9 % Final ABSOLUTE NEUTS 11/08/2020 10.88* 1.80 - 7.70 K/uL Final ABSOLUTE LYMPHS 11/08/2020 0.78* 1.00 - 3.10 K/uL Final ABSOLUTE MONOS 11/08/2020 1.14* 0.20 - 0.80 K/uL Final ABSOLUTE EOS 11/08/2020 0.07 0.00 - 0.80 K/uL Final ABSOLUTE BASOS 11/08/2020 0.05 0.00 - 0.09 K/uL Final Granulocytes, immature 11/08/2020 0.11* 0.00 - 0.05 K/uL Final TOXOPLASMA IGM AB 11/08/2020 Negative Negative Final Comment: (NOTE) No IgM antibodies to T. gondii detected. Results may be negative in patients with recent infection or who are significantly immunosuppressed. TOXOPLASMA AB, IGG 11/08/2020 Negative Negative IU/mL Final TOXOPLASMA IGG VALUE 11/08/2020 <3 IU/mL Final Comment: (NOTE) REFERENCE VALUE <=9 IU/mL (Negative) 10-11 IU/mL (Equivocal) >=12 IU/mL (Positive) HBV SURFACE ANTIBODY 11/08/2020 Positive Final Comment: Unvaccinated: Negative Vaccinated: Positive LDH 11/08/2020 285* 118 - 273 U/L Final TOTAL PROTEIN 11/08/2020 6.6 6.3 - 7.9 g/dL Final Albumin 11/08/2020 2.9* 3.4 - 4.7 g/dL Final Alpha-1 Globulin 11/08/2020 0.5* 0.1 - 0.3 g/dL Final Alpha-2 Globulin 11/08/2020 1.2* 0.6 - 1.0 g/dL Final Beta-Globulin 11/08/2020 1.1 0.7 - 1.2 g/dL Final Gamma-Globulin 11/08/2020 0.9 0.6 - 1.6 g/dL Final A/G Ratio 11/08/2020 0.79 Final M spike 11/08/2020 Test component not applicable or not reported. g/dL Final M spike 11/08/2020 Test component not applicable or not reported. g/dL Final Impression 11/08/2020 SEE NOTE Final Comment: (NOTE) No apparent monoclonal protein on serum electrophoresis. Hepatitis A Antibody, IgM 11/08/2020 NON-REACTIVE NON-REACTIVE Final Lyme AB IgG 11/08/2020 Negative Negative Final Lyme AB IgM 11/08/2020 Negative Negative Final Transcribe Orders on 11/07/2020 Component Date Value Ref Range Status FREE T3 11/07/2020 2.0 2.0 - 4.4 pg/mL Final IMMUNOGLOBULIN G 11/07/2020 732 700 - 1,600 mg/dL Final IgA 11/07/2020 146 70 - 400 mg/dL Final IMMUNOGLOBULIN M 11/07/2020 73 40 - 230 mg/dL Final EHRLICHIA CHAFF (HME) AB, IGG 11/07/2020 <1:64 <1:64 TITER Final Comment: (NOTE) ADDITIONAL INFORMATION This test was developed using an analyte specific reagent. Its performance characteristics were determined by [facility] in a manner consistent with CLIA requirements. This test has not been cleared or approved by the U.S. Food and Drug Administration. EBV VCA, IGG 11/07/2020 Positive Negative Final EBV VCA, IGM 11/07/2020 Positive* Negative Final EB NUCLEAR AG ABS 11/07/2020 Positive Negative Final EBV AB PANEL INTERP 11/07/2020 SEE NOTE Final Comment: (NOTE) Results may suggest recovery or reactivation. ADDITIONAL INFORMATION In most populations, at least 90% of the adult population will have been infected with EBV sometime in the past and therefore, will be positive for anti-VCA/IgG and anti- EBNA. Antibodies to EBNA develop 6-8 weeks after primary infection and remain present for life. Presence of VCA/ IgM antibodies indicates recent primary infection with EBV. ANAPLASMA PHAGOCYTOPHILUM AB I 11/07/2020 <1:64 <1:64 TITER Final Comment: (NOTE) ADDITIONAL INFORMATION This test was developed using an analyte specific reagent. Its performance characteristics were determined by [facility] in a manner consistent with CLIA requirements. This test has not been cleared or approved by the U.S. Food and Drug Administration. Osteoarthritis of multiple joints Resolved Problems Problem Noted Date Diagnosed Date Resolved Date Fever of unknown origin 10/20/2020 05/11/2020 Facial aging 07/10/2017 09/19/2021 Encounters Date Type Department Care Team Description 03/03/2025 10:14 AM EDT - 03/03/2025 11:59 PM EDT Hospital Encounter [facility] [address] [place] [id number] Royer Ross DO Discharge Disposition: Home or Self Care 03/03/2025 Transcribe Orders [facility] [address] [place] [id number] Royer Ross, Primary hypertension (Primary Dx) from Last 3 Months Immunizations Immunization Administration Dates Next Due INFLUENZA, SPLIT VIRUS, TRIVALENT W/ PRESERVATIV E IM 04/30/2012 IPV 07/28/2010 Influenza Quadrivalent MDCK w/Preservative IM Influenza Quadrivalent Preservative Free IM 03/09 Influenza Quadrivalent w/ Preservative IM 2019,02/24/2020 Td (adult), not adsorbed 09/24/2017 Tdap 06/03/2012 Typhoid, unspecified formulation 10/06/2009 Family History Medical History Relation Comments No Known Problems Brother No Known Problems Daughter Multiple myeloma Father Cause of Prostate cancer Father Rheumatoid arthritis Father Diabetes type II Mother Hypertension Mother Osteoarthritis Mother No Known Problems Sister No Known Problems Son 1 Relation Status Comments Brother Alive Daughter Alive Father (Age 68) Mother Alive Sister Alive Son 1 Alive Son 2 Alive Social History Tobacco Use Types Packs/Day Years Used Date Smoking Tobacco: Never Smokeless Tobacco: Never Tobacco Cessation:Counseling Given: Not Answered Alcohol Use Standard Drinks/Week Comments No 0 (1 standard drink = 0.6 oz pur e alcohol) Education Answer Date Recorded Are you interested in more education? Not on madan e 11/02/2022 Are you concerned about learning? Not on file 11/02/2022 No 11/02/2022 No 11/02/2022 Digital Access Answer Date Recorded No 12/03/2022 No 12/03/2022 Reliable internet access at home? Not on file 12/03/2022 Device with a working camera? Not on file Education Answer Date Recorded What is the highest level of school you have completed or the highest degree you have received? Master's degree (e.g., MA, MS, Jong, MEd, LEAVE COORDINATOR, RAD) 11/08/2020 Comments No Sex and Gender Information Value Date Recorded Sex Assigned at Not on file Legal Sex Female 9:50 PM EDT Gender Identity Not on file Sexual Orientation Not on file Occupation Industry Job Start Date Job End Date Nurse Not on file Not on file Not on file Last Filed Vital Signs Vital Sign Reading Time Taken Comments Blood Pressure 168/98 09/08/2024 10:33 AM EST Pulse 86 11/29/2020 10:31 AM EDT Temperature 36.4 C (97.5 F) 11/29/2020 10:31 AM EDT Respiratory Rate 17 11/11/2020 10:15 AM EDT Oxygen Saturation 97% 11/29/2020 10:31 AM EDT Inhaled Oxygen Concentration - - Weight 69.9 kg (154 lb) 01/09/2025 3:39 PM EDT Height 170.2 cm (5' 7 ) 01/09/2025 3:39 PM EDT Body Mass Index 24.12 01/09/2025 3:39 PM EDT Plan of Treatment Health Maintenance Due Date Last Done Comments DEPRESSION SCREENING 1970 COLOGUARD 2003 FIT TEST 2003 FOBT 2003 SIGMOIDOSCOPY 2003 VIRTUAL COLONOSCOPY 2003 PNEUMOCOCCAL VACCINES (50+ years) (1 of 1 - PCV) 2008 ZOSTER VACCINES (1 of 2) 2008 LIPID PANEL 02/24/2015 02/24/2010 COLONOSCOPY 11/22/2021 11/23/2011 COLORECTAL CANCER SCREENING 11/22/2021 MAMMOGRAM 04/24/2023 04/24/2021, 03/08, 04/18/2012 INFLUENZA VACCINE (#1) 2025 , 03/05/2022, 04/09/2021, Additional history exists COVID-19 VACCINE ( season) 2025 08/25/2020, 07/19/2020 BLOOD PRESSURE 03/11/2025 09/08/2024 POTASSIUM LEVEL 03/03/2026 03/03/2025, 11/05, 11/11/2020, Additional history exists Adult Td,Tdap Booster 09/25/2027 09/24/2017, 012 HEPATITIS C SCREENING Completed 11/08/2020 RSV VACCINE Completed 06/08/2023 OSTEOPOROSIS SCREENING INITIAL (ONE-TIME) Completed 01/23/2024, 05/31/2020 SMOKING STATUS SCREENING (Once After 26 Yrs) Completed 09/08/2024 HIB VACCINES Aged Out No longer eligi ble based on patient's age to complete this topic MENINGOCOCCAL VACCINES (ACWY) Aged Out No longer eligible based on patient's age to complete this topic MENINGOCOCCAL VACCINES (B) Aged Out N o longer eligible based on patient's age to complete this topic Medical Devices Not on file Procedures Procedure Name Priority Date/Time Associated Diagnosis Comments CBC Routine 03/03/2025 10:16 AM EDT Primary hypertension COMPREHENSIVE METABOLIC PANEL Routine 03/03/2025 10:16 AM EDT Primary hypertension BD DXA AXIAL (SPINE) WITH HIP Routine 01/23/2024 11:01 AM EDT Osteopenia, unspecified location BI MAMMOGRAM SCREENING WITH TOMOSYNTHESIS WITH CAD (BILATERAL) Routine 04/24/2021 1:49 PM EDT Breast screening HEPATITIS C ANTIBODY, QUALITATIVE Routine 11/08/2020 11:50 AM EDT Fatigue, unspecified type Fever, unspecified fever cause Hyperthermia-induced defect Arthralgia, unspecified joint OUTSIDE LDL Routine 02/24/2010 from Last 3 Months or Most Recently Relevant to Health Maintenance Results * Comprehensive metabolic panel (03/03/2025 10:16 AM EDT) SODIUM 137 133 - 146 mmol/L [facility] POTASSIUM 3.7 3.3 - 5.1 mmol/L [facility] CHLORIDE 98 96 - 108 mmol/L [facility] CO2 30 21 - 35 mmol/L [facility] BUN 12 6 - 19 mg/dL [facility] CREATININE 0.70 0.5 - 1.5 mg/dL [facility] GLUCOSE 90 70 - 99 mg/dL [facility] ALBUMIN 4.1 3.9 - 4.8 g/dL [facility] TOTAL PROTEIN 6.6 6.5 - 8.0 g/dL [facility] CALCIUM 8.9 8.4 - 10.3 mg/dL [facility] ALKALINE PHOSPHATASE 74 39 - 117 U/L [facility] TOTAL BILIRUBIN 0.6 0.0 - 1.2 mg/dL [facility] AST 21 0 - 37 U/L [facility] ALT 13 0 - 40 U/L [facility] GLOBULIN 2.5 1 - 4.8 g/dL [facility] EGFR 95 >59 mL/min/1.7 3m2 [facility] Comment:Estimated glomerular filtration rate calculated using the CKD-EPI refit equation. ANION GAP 13 10 - 20 mmol/L [facility] Blood 03/03/2025 10:1 6 AM EDT 03/03/2025 10:19 AM EDT us Royer A Bigda DO LAB BLOOD ORDERABLES Final Resul t Performing Organization Address [facility] Co de Phone Number [address] [address] * CBC (03/03/2025 10:16 AM EDT) WBC 4.99 4.00 - 11.00 K/uL [facility] RBC 4.67 4.00 - 5.20 M/uL [facility] HGB 14.5 12.0 - 16.0 g/dL [facility] HCT 42.1 36.0 - 46.0 % [facility] PLT 328 150 - 450 K/uL [facility] MCV 90.1 80.0 - 100.0 fL [facility] MCH 31.0 27.0 - 31.0 pg [facility] MCHC 34.4 32.0 - 36.0 g/dL [facility] RDW 12.3 11.5 - 14.5 % [facility] MPV 9.5 8.4 - 12.0 fL [facility] NRBC 0.00 0.00 /100 WBCs [facility] ABSOLUTE NRBC 0.00 0.00 K/uL [facility] Blood 03/03/2025 10:1 6 AM EDT 03/03/2025 10:19 AM EDT us Royer A Bigda DO LAB BLOOD ORDERABLES Final Resul t Performing Organization Address [facility]/ZIP Co de Phone Number [address] [phone] * BD DXA AXIAL (SPINE) WITH HIP (01/23/2024 11:01 AM EDT) Anatomical Region Laterality Modality Bone Density Bone Density 01/23/2024 11:0 0 AM EDT Impressions 01/23/2024 12:09 PM EDT Interpretation: Osteopenia. Narrative 01/23/2024 12:09 PM EDT Referred By: FLORINDA CERNA Indications: Osteopenia Scanner: Mayday PAC A with serial# of [id number] located at [facility] Bone Density Scan (DXA) 01/23/24 Details of prior DXA scans are available by clicking View Image BMD T- Z- Skeletal Site gm/cm2 score score BMD Change Since Prior Scan ------ ----- ----- PA Spine (L1 L2 L3) 1.071 0.50 2.20 0.048 (4.7%)* since 05/31/2020 Total Hip (Left) 0.826 -1.00 0.30 -0.008 (stable) since 05/31/2020 Femoral Neck (Left) 0.729 -1.10 0.50 0.057 (8.5%)* since 05/31/2020 ------ ----- ----- * Denotes significant change when >= 0.022 g/cm2 for the spine, 0.027 g/cm2 for the total hip, 0.029 g/cm2 for the femoral neck. Interpretation: Osteopenia. Technical Quality: Imaging of all sites was of adequate quality.NOTE: We newly excluded one or more vertebrae. To allow comparisons with prior tests, we recalculated the total BMD of all prior spine tests after excluding the same vertebra(e). FRAX: Based on FRAX(r) 3.6 ([place] White female), this patient's likelihood of hip fracture is 0.6% and major osteoporotic fracture is 8.1% over the next 10 years. The patient reported no risks of fracture. Additional Information: -World Health Organization criteria classify adults based on lowest T-score at PA spine, hip or forearm: Normal (T-score >= -1.0), Osteopenia (T-score between -1 and -2.5), or Osteoporosis (T-score <= -2.5). At [facility], T-scores are compared to peak bone density of a young white gender matched reference population. - For premenopausal women and men under the age of 50, Z-scores (comparison to age, gender, and ethnicity matched reference population) are used: Above expected range for age (Z-score >= 2.0), Within expected range of age (Z-score 1.9 to -1.9), or Below expected range for age (Z-score <= -2.0). - The Bone Health and Osteoporosis Foundation recommends that treatment be considered in men aged more than 50 years and in postmenopausal women with ANY of the following: Prior hip or vertebral fractures; T-score of <= -2.5 at the PA spine or hip; or 10 year fracture probability by FRAX of >= 3% for the hip or >= 20% for major osteoporotic fracture. - The FRAX algorithm (https://www.dallas.ac.uk/FRAX/tool.aspx) is designed to predict 10-year fracture risk in treatment-naive adults between the ages of 40 and 90. It is not intended to be used in those receiving pharmacologic osteoporosis treatment. - Including race/ethnicity in the generation of T- or Z-scores or in the FRAX calculation is complicated, and currently undergoing active review to ensure that we can give patients the best information on their risk of fracture. -Some prior studies may not be compatible with our comparison software. -Click on View Full Report to see subsequent pages with images and prior bone density results. Reviewed By: Rajan Murphy MD on 01/23/2024 12:09:13 Procedure Note Rajan Murphy MD - 01/23/2024 Referred By: FLORINDA CERNA Indications: Osteopenia Scanner: Mayday PAC A with serial# of [id number] located at [facility] Bone Density Scan (DXA) 01/23/24 Details of prior DXA scans are available by clicking View Image BMD T- Z- Skeletal Site gm/cm2 score score BMD Change Since Prior Scan ------ ----- PA Spine (L1 L2 L3) 1.071 0.50 2.20 0.048 (4.7%)* since05/31/2020 Total Hip (Left) 0.826 -1.00 0.30 -0.008 (stable) since05/31/2020 Femoral Neck (Left) 0.729 -1.10 0.50 0.057 (8.5%)* since05/31/2020 ------ ----- * Denotes significant change when >= 0.022 g/cm2 for the spine, 0.027g/cm2 for the total hip, 0.029 g/cm2 for the femoral neck. Interpretation: Osteopenia. Technical Quality: Imaging of all sites was of adequate quality.NOTE: We newly excluded one or more vertebrae. To allow comparisons with priortests, we recalculated the total BMD of all prior spine tests after excluding the same vertebra(e). FRAX: Based on FRAX(r) 3.6 ([place] White female), this patient's likelihoodof hip fracture is 0.6% and major osteoporotic fracture is 8.1% over the next 10 years. The patient reported no risks of fracture. Additional Information: -World Health Organization criteria classify adults based on lowestT-score at PA spine, hip or forearm: Normal (T-score >= -1.0), Osteopenia (T-score between -1 and -2.5), or Osteoporosis (T-score <= -2.5). At [facility], T-scores are compared to peak bone density of a young white gender matched reference population. - For premenopausal women and men under the age of 50, Z-scores(comparison to age, gender, and ethnicity matched reference population) are used:Above expected range for age (Z-score >= 2.0), Within expected range of age (Z-score 1.9 to -1.9), or Below expected range for age (Z-score <= -2.0). - The Bone Health and Osteoporosis Foundation recommends that treatment be considered in men aged more than 50 years and in postmenopausal women with ANY of the following: Prior hip or vertebral fractures; T-score of <= -2.5 at the PA spine or hip; or 10 year fracture probability by FRAX of >= 3%for the hip or >= 20% for major osteoporotic fracture. - The FRAX algorithm (https://www.[place].ac.uk/FRAX/tool.aspx) is designed to predict 10-year fracture risk in treatment-naive adultsbetween the ages of 40 and 90. It is not intended to be used in those receiving pharmacologic osteoporosis treatment. - Including race/ethnicity in the generation of T- or Z-scores or in the FRAX calculation is complicated, and currently undergoing active review to ensure that we can give patients the best information on their risk of fracture. -Some prior studies may not be compatible with our comparison software. -Click on View Full Report to see subsequent pages with images and prior bone density results. Reviewed By: Rajan Murphy MD on 01/23/2024 12:09:13 IMPRESSION: Interpretation: Osteopenia. Florinda GRIFFIN IMG BD BONE DENSITY DEXA Fi nal Result * BI MAMMOGRAM SCREENING WITH TOMOSYNTHESIS WITH CAD (BILATERAL) (04/24/2021 1:49 PM EDT) Anatomical Region Laterality Modality Breast Left, Breast Right, Breast Bilateral Bila teral Mammography 04/24/2021 2:37 PM EDT Impressions 04/24/2021 2:39 PM EDT No mammographic change indicative of malignancy. Routine screening is recommended. BI-RADS CATEGORY: 2 - Benign finding. DENSITY: The breast tissue is almost entirely fat. Narrative 04/24/2021 2:39 PM EDT Bilateral full-field digital screening mammography is obtained and read in conjunction with computer-aided detection. Tomosynthesis as well as 2-D C view imaging of both breasts in two planes also obtained. Comparison made to multiple prior, most recent March 18, 2019, and most remote August 04, 2009. No dominant mass, architectural distortion, worrisome asymmetry, or suspicious calcification is identified. No skin or nipple finding of concern is appreciated. Chronic nodular asymmetry posterior upper left breast is unchanged. Procedure Note Harinder Ramos MD - 04/24/2021 Bilateral full-field digital screening mammography is obtained and read inconjunction with computer-aided detection. Tomosynthesis as well as 2-D Cview imaging of both breasts in two planes also obtained. Comparison madeto multiple prior, most recent March 18, 2019, and most remote 2009. No dominant mass, architectural distortion, worrisome asymmetry, orsuspicious calcification is identified. No skin or nipple finding ofconcern is appreciated. Chronic nodular asymmetry posterior upper leftbreast is unchanged. IMPRESSION: No mammographic change indicative of malignancy. Routine screening isrecommended. BI-RADS CATEGORY: 2 - Benign finding. DENSITY: The breast tissue is almost entirely fat. Florinda GRIFFIN IMG MG EXAMS Final Resul t * Hepatitis C antibody, qualitative (11/08/2020 11:50 AM EDT) HCV NON-REACTIV E NON-REACTI VE [facility] Blood 11/08/2020 11:5 0 AM EDT 11/08/2020 11:57 AM EDT Florinda GRIFFIN LAB BLOOD ORDERABLES Final Result [facility] [address] [place] [address] * Outside LDL (02/24/2010) LDL - External 120 50 - 250 mg/ml us Historical Provider LAB BLOOD ORDERABLES Sonya l Result from Last 3 Months or Most Recently Relevant to Health Maintenance Insurance MEDICARE PART A & B Member Subscriber Plan / Payer (Ef fective 2023-Present) Name:Simón Rossan Member ID:[id number] Relation to Subscriber:Self Name:Gilmar Ross Subscriber ID:[id number] Payer ID:[id number] Group ID:Not on file Type:Medicare Address: [employer] [address] [place] [address] [place] [address] SELECT MEDICARE PART A & B Member Subscriber Plan / Payer (Ef fective 2023-Present) Name:CodySimónan Member ID:[id number] Relation to Subscriber:Self Name:Gilmar Ross Subscriber ID:[id number] Payer ID:[id number] Group ID:Not on file Type:Medicare Address: [employer] [address] [place] [id number] [place] [address] SELECT MEDICARE PART A & [place] [address] SELECT MEDICARE PART A & B [facility] SELECT MEDICARE PART A & B [facility] MEDICARE PART A & B [facility] SELECT Care Teams Diamond Powder Technician Relationship Specialty Start Date End Date Florinda Cerna PA [address] [facility] [place] [address] PCP - General 02/05/22 Additional Source Comments The information contained in this document represents components of the legal health record. It is not the complete legal health record.[facility]
--- OUTSIDE RECORDS SUMMARY | 2025-04-30 14:21 | XMS_ITS | Encounter Summary ---
Author Organization [facility] Address [address] [facility] [address] [place] [address] Phone Care Team Providers Care Community Relations Assistant Name Role Phone Susan Cerna Primary Care Provider [phone] Susan Cerna Primary Care Provider [phone] Encounter Details Date Type Department Care Team (Latest Contact Info) Description 03/14/2021 Transcribe Orders Virtual Department [address] [place] [address] Susan Cerna PA [address] [facility] [place] [address] Encounter for laboratory testing for COVID-19 virus (Primary Dx) Social History Tobacco Use Types Packs/Day Years Used Date Smoking Tobacco: Never Smokeless Tobacco: Never Alcohol Use Standard Drinks/Week Comments No 0 (1 standard drink = 0.6 oz pur e alcohol) Education Answer Date Recorded What is the highest level of school you have completed or the highest degree you have received? Master's degree (e.g., MA, MS, Jong, MEd, PARKING TECHNICIAN, RAD) 11/08/2020 Comments No Sex and Gender Information Value Date Recorded Sex Assigned at Not on file Legal Sex Female 9:50 PM EDT Gender Identity Not on file Sexual Orientation Not on file Occupation Industry Job Start Date Job End Date Nurse Not on file Not on file Not on file documented as of this encounter Plan of Treatment Not on file documented as of this encounter Results * COVID-19 PCR Order (03/15/2021 9:30 AM EDT) COVID Testing Status Specimen received in analyzing lab. Results should be available within 24 to 48 hrs. [facility] Symptomatic? NO [facility] Other (Nasal swab) 03/15/2021 9:30 AM EDT 03/15/2021 2:26 PM EDT Susan GRIFFIN BODY FLUIDS AND STOOLS LYNNE RYAN Final Result [facility] [address] [place] [address] [facility] [address] [place] [address] documented in this encounter Visit Diagnoses Diagnosis Encounter for laboratory testing for COVID-19 virus- Primary documented in this encounter Additional Health Concerns [...] documented as of this encounter Care Teams Community Relations Assistant Relationship Specialty Start Date End Date Susan Cerna PA [address] [facility] [place] [address] PCP - General 11/11/20 02/04/22 Susan Cerna PA [address] [facility] [place] [address] PCP - General 02/05/22 documented as of this encounter Additional Source Comments The information contained in this document represents components of the legal health record. It is not the complete legal health record.[facility]
--- OUTSIDE RECORDS SUMMARY | 2025-04-30 14:21 | XMS_ITS | Encounter Summary ---
Author Organization [facility] Address [address] [facility] [address] [place] [address] Phone Care Team Providers Care Ship Scraper Name Role Phone Susan Cerna Primary Care Provider [phone] Susan Cerna Primary Care Provider [phone] Encounter Details Date Type Department Care Team (Late st Contact Info) Description 01/31/2021 Procedure Pass [facility] [address] [place] [address] Social History Tobacco Use Types Packs/Day Years Used Date Smoking Tobacco: Never Smokeless Tobacco: Never Alcohol Use Standard Drinks/Week Comments No 0 (1 standard drink = 0.6 oz pur e alcohol) Education Answer Date Recorded What is the highest level of school you have completed or the highest degree you have received? Master's degree (e.g., MA, MS, Jong, MEd, DIRECTOR OF REVENUE CYCLE MANAGEMENT, RAD) 11/08/2020 Comments No Sex and Gender [...] on file documented as of this encounter Visit Diagnoses Not on filedocumented in this encounter Additional Health Concerns Infection [...] documented as of this encounter Care Teams Ship Scraper Relationship Specialty Start Date End Date Susan Cerna PA [address] [facility] [place] [address] PCP - General 11/11/20 02/04/22 Susan Cerna PA [address] [facility] [place] [address] PCP - General 02/05/22 documented as of this encounter Additional Source Comments The information contained in this document represents components of the legal health record. It is not the complete legal health record.[facility]
--- OUTSIDE RECORDS SUMMARY | 2025-04-30 14:21 | XMS_ITS | Encounter Summary ---
Author Organization [facility] Address [address] [facility] [address] [place] [address] Phone Care Team Providers Care Mounter Flutes And Piccolos Name Role Phone Susan Cerna Primary Care Provider [phone] Susan Cerna Primary Care Provider [phone] Encounter Details Date Type Department Care Team (Late st Contact Info) Description 01/17/2022 Procedure Pass [facility], [address] [address] Social History Tobacco Use Types Packs/Day Years Used Date Smoking Tobacco: Never Smokeless Tobacco: Never Alcohol Use Standard Drinks/Week Comments No 0 (1 standard drink = 0.6 oz pur e alcohol) Education Answer Date Recorded What is the highest level of school you have completed or the highest degree you have received? Master's degree (e.g., MA, MS, Jong, MEd, FROZEN MEAT CUTTER, RAD) 11/08/2020 Comments No Sex and Gender [...] Diagnoses Not on filedocumented in this encounter Care Teams Mounter Flutes And Piccolos Relationship Specialty Start Date End Date Susan Cerna PA [address] [place] [address] [place] [address] PCP - General 11/11/20 02/04/22 Susan Cerna PA [address] [facility] [place] [address] PCP - General 02/05/22 documented as of this encounter Additional Source Comments The information contained in this document represents components of the legal health record. It is not the complete legal health record.[facility]
--- OUTSIDE RECORDS SUMMARY | 2025-04-30 14:21 | XMS_ITS | Encounter Summary ---
Author Organization [facility] Address [address] [place] [address] [place] [address] Phone Care Team Providers Care Reinsurance Claims Analyst Name Role Phone Royer Ross DO Primary Care Provider [phone] Susan Cerna Primary Care Provider [phone] Susan Cerna Primary Care Provider [phone] Encounter Details Date Type Department Care Team (Late st Contact Info) Description 10/10/2017 Ancillary Orders Virtual Department [address] [place] [address] Myra Mishra PA-C [address] [place] [address] [email or web address] Right shoulder pain, unspecified chronicity Social History Tobacco Use Types Packs/Day Years [...] documented as of this encounter Results * XR SHOULDER 2 VIEWS (RIGHT) (10/10/2017 2:12 PM EDT) Anatomical Region Laterality Modality Shoulder Right Radiographic Magdalena ging 10/10/2017 2:27 PM EDT Impressions 10/10/2017 2:31 PM EDT Interval right shoulder surgery. Stable mild AC joint osteoarthritis. POS - [id number] Narrative 10/10/2017 2:31 PM EDT HISTORY: As above. COMPARISON: 03/06/2010. RIGHT SHOULDER RADIOGRAPH FINDINGS: 5 views obtained. No fracture or malalignment. Stable mild acromial clavicular joint space narrowing and spurring. New surgical anchors in the humeral head. Glenohumeral joint space is maintained. No destructive bone lesions or AVN. No rotator cuff calcifications. Imaged right lung is clear. Procedure Note Zahra Morris MD - 10/10/2017 HISTORY: As above. COMPARISON: 03/06/2010. RIGHT SHOULDER RADIOGRAPH FINDINGS: 5 views obtained. No fracture or malalignment. Stable mild acromialclavicular joint space narrowing and spurring. New surgical anchors inthe humeral head. Glenohumeral joint space is maintained. No destructivebone lesions or AVN. No rotator cuff calcifications. Imaged right lungis clear. IMPRESSION: Interval right shoulder surgery. Stable mild AC joint osteoarthritis. POS - [id number] October Danica LUCIA IMG XR UPPER EXTREMITY Final Result documented in this encounter Visit Diagnoses Diagnosis Right shoulder pain, unspecified chronicity Right shoulder pain, unspecified chronicity documented in this encounter Additional Health Concerns [...] documented as of this encounter Care Teams Reinsurance Claims Analyst Relationship Specialty Start Date End Date Royer Ross DO PCP - General 04/25/17 11/10/20 Susan Cerna PA 6 [place] [address] PCP - General 11/11/20 02/04/22 Susan Cerna PA [address] [place] [address] PCP - General 02/05/22 documented as of this encounter Additional Source Comments The information contained in this document represents components of the legal health record. It is not the complete legal health record.[facility]
--- OUTSIDE RECORDS SUMMARY | 2025-04-30 14:21 | XMS_ITS | Encounter Summary ---
Author Organization [facility] Address [address] [place] [address] [place] [address] Phone Care Team Providers Care Extender Name Role Phone Royer Ross DO Primary Care Provider [phone] Susan Cerna Primary Care Provider [phone] Susan Cerna Primary Care Provider Encounter Details Date Type Department Care Team (Late st Contact Info) Description 10/09/2017 Ancillary Orders Virtual Department [address] [place] [address] Myra Mishra PA-C [address] [place] [address] [email or web address] Right shoulder pain, unspecified chronicity [...] documented as of this encounter Visit Diagnoses Diagnosis Right shoulder pain, unspecified chronicity documented in [...] documented as of this encounter Care Teams Extender Relationship Specialty Start Date End Date Royer Ross DO PCP - General 04/25/17 11/10/20 Susan Cerna PA [address] [place] [address] PCP - General 11/11/20 02/04/22 Susan Cerna PA [address] [place] [address] PCP - General 02/05/22 documented as of this encounter Additional Source Comments The information contained in this document represents components of the legal health record. It is not the complete legal health record.[facility]
--- OUTSIDE RECORDS SUMMARY | 2025-04-30 14:21 | XMS_ITS | Encounter Summary ---
Author Organization [facility] Address [address] [address] Phone Care Team Providers Care Integrated Logistics Programs Director Name Role Phone Susan Cerna Primary Care Provider [phone] Susan Cerna Primary Care Provider [phone] Reason for Referral * MRI/CAT Scan - Closed Specialty Diagnoses / Procedures Referred By Donald t Referred To Contact Radiology Diagnoses Osteoarthritis of right hip, unspecified osteoarthritis type Procedures MRI Hip (Right) Royer Ross DO Phone: tel: fax: [email or web address] Referral ID Status Reason Start Date Expiration Date Visits Re quested Visits Authorized [id number] Closed 01/17/2022 01/17/2023 1 1 Encounter Details Date Type Department Care Team (Latest Contact Info) Description 01/17/2022 Transcribe Orders Virtual Department [address] [place] [address] Susan Cerna PA [address] [place] [address] [place] [address] Primary osteoarthritis of both hips (Primary Dx); Osteoarthritis of right hip, unspecified osteoarthritis type Social History Tobacco Use Types Packs/Day Years Used Date Smoking Tobacco: Never Smokeless Tobacco: Never Alcohol Use Standard Drinks/Week Comments No 0 (1 standard drink = 0.6 oz pur e alcohol) Education Answer Date Recorded What is the highest level of school you have completed or the highest degree you have received? Master's degree (e.g., MA, MS, Jong, MEd, COLLEGE OR UNIVERSITY DEPARTMENT HEAD, RAD) 11/08/2020 Comments No Sex and Gender [...] documented as of this encounter Results * MRI HIP WITHOUT CONTRAST (RIGHT) (02/05/2022 6:41 PM EDT) Anatomical Region Laterality Modality Hip Right Magnetic Resonan ce 02/06/2022 4:28 PM EDT Impressions 02/06/2022 4:33 PM EDT Moderate degenerative changes of the right hip. No fracture or acute myotendinous injury. Narrative 02/06/2022 4:33 PM EDT MRI HIP WITHOUT CONTRAST (RIGHT) TECHNIQUE: Multi-sequence, multi-planar MRI of the hip without intravenous contrast. COMPARISON: CT ABDOMEN/PELVIS WITH CONTRAST FINDINGS: ENTIRE PELVIS SCREENING: No fracture, sacroiliitis, or focal bone lesion. Colonic diverticulosis. DEDICATED HIP: Bone: No fracture or osteonecrosis. Joint: Moderate degenerative changes with foci of full-thickness fissuring in the superolateral acetabulum where subchondral bone marrow edema is present. Diffuse labral degeneration. No significant joint effusion. Tendons: Chronic appearing low-grade partial tearing of the gluteus medius tendon at its trochanteric attachment. Intact gluteus minimus, iliopsoas, rectus femoris and proximal hamstring tendons. Soft Tissues: Normal. No soft tissue mass. No bursal collection. Procedure Note Remy Moody MD - 02/06/2022 MRI HIP WITHOUT CONTRAST (RIGHT) TECHNIQUE: Multi-sequence, multi-planar MRI of the hip without intravenouscontrast. COMPARISON: CT ABDOMEN/PELVIS WITH CONTRAST FINDINGS: ENTIRE PELVIS SCREENING: No fracture, sacroiliitis, or focal bone lesion.Colonic diverticulosis. DEDICATED HIP: Bone: No fracture or osteonecrosis. Joint: Moderate degenerative changes with foci of full-thickness fissuringin the superolateral acetabulum where subchondral bone marrow edema ispresent. Diffuse labral degeneration. No significant joint effusion. Tendons: Chronic appearing low-grade partial tearing of the gluteus mediustendon at its trochanteric attachment. Intact gluteus minimus, iliopsoas,rectus femoris and proximal hamstring tendons. Soft Tissues: Normal. No soft tissue mass. No bursal collection. IMPRESSION: Moderate degenerative changes of the right hip. No fracture or acute myotendinous injury. us Royer A Bigda DO IMG MR EXTREMITY Final Result documented in this encounter Visit Diagnoses Diagnosis Primary osteoarthritis of both hips- Primary Osteoarthritis of right hip, unspecified osteoarthritis type Osteoarthritis of right hip, unspecified osteoarthritis type documented in this encounter Care Teams Integrated Logistics Programs Director Relationship Specialty Start Date End Date Susan Cerna PA [address] [place] [address] PCP - General 11/11/20 02/04/22 Susan Cerna PA [address] [facility] [place] [address] PCP - General 02/05/22 documented as of this encounter Additional Source Comments The information contained in this document represents components of the legal health record. It is not the complete legal health record.[facility]
--- OUTSIDE RECORDS SUMMARY | 2025-04-30 14:21 | XMS_ITS | Encounter Summary ---
Author Organization [facility] Address [address] [facility] [address] [place] [address] Phone Care Team Providers Care Warping Mill Operator Name Role Phone Royer Ross DO Primary Care Provider [phone] Susan Cerna Primary Care Provider [phone] Susan Cerna Primary Care Provider Encounter Details Date Type Department Care Team (Late st Contact Info) Description 05/21/2017 Ancillary Orders Virtual Department 30 [place] [address] Myra Mishra PA-C [address] [place] [address] [email or web address] Pain of left calf; Swelling Social History Tobacco Use Types Packs/Day Years Used Date Smoking Tobacco: Never Assessed Comments Unknown Sex and Gender Information Value Date Recorded Sex Assigned at Not on file Legal Sex Female 9:50 PM EDT Gender Identity Not on file Sexual Orientation Not on file documented as of this encounter Plan of Treatment Not on file documented as of this encounter Results * US Lower Extremity Veins Duplex (Left) (05/21/2017 3:19 PM EST) Anatomical Region Laterality Modality Hip Left, Thigh Left, Knee L eft, Leg Left, Ankle Left, Foot Left Ultrasound 05/21/2017 3:21 PM EST Impressions 05/21/2017 3:22 PM EST Normal ultrasound evaluation of the deep venous system of the left leg. No findings of DVT are seen. Left popliteal fluid collection consistent with a Escobedo's cyst. S/S: Left calf pain and swelling, Escobedo's cyst, history of recent knee surgery POS [id number] Narrative 05/21/2017 3:22 PM EST The deep venous system of the left leg is well-visualized with uriarte scale imaging, color-flow imaging, and Doppler spectral analysis. No findings of deep venous thrombophlebitis are identified. There is complete compression of the deep venous system evident. Normal color flow is seen. There is excellent augmentation on the left. Evaluation of the popliteal fossa discloses a 4.2 x 0.9 x 2.7 cm fluid collection consistent with a Escobedo's cyst.. Procedure Note Eliecer Claros MD - 05/21/2017 The deep venous system of the left leg is well-visualized with uriarte scaleimaging, color-flow imaging, and Doppler spectral analysis. No findingsof deep venous thrombophlebitis are identified. There is completecompression of the deep venous system evident. Normal color flow is seen.There is excellent augmentation on the left. Evaluation of the poplitealfossa discloses a 4.2 x 0.9 x 2.7 cm fluid collection consistent with aBaker's cyst.. IMPRESSION: Normal ultrasound evaluation of the deep venous system of the left leg.No findings of DVT are seen. Left popliteal fluid collection consistentwith a Escobedo's cyst. S/S: Left calf pain and swelling, Escobedo's cyst, history of recent kneesurgery POS [id number] October [facility] Final Result documented in this encounter Visit Diagnoses Diagnosis Pain of left calf Swelling Localized superficial swelling, mass, or lump Pain of left calf Swelling Localized superficial swelling, mass, or lump documented in this encounter Additional Health Concerns [...] documented as of this encounter Care Teams Warping Mill Operator Relationship Specialty Start Date End Date Royer Ross DO PCP - General 04/25/17 11/10/20 Susan Cerna PA 6 [place] [address] PCP - General 11/11/20 02/04/22 Susan Cerna PA 6 [place] [address] PCP - General 02/05/22 documented as of this encounter Additional Source Comments The information contained in this document represents components of the legal health record. It is not the complete legal health record.[facility]
--- OUTSIDE RECORDS SUMMARY | 2025-04-30 14:22 | XMS_ITS | Encounter Summary ---
Author Organization [facility] Address [address] [facility] [address] [place] [address] Phone Care Team Providers Care Data Processing Manager Name Role Phone Susan Cerna Primary Care Provider [phone] Susan Cerna Primary Care Provider Encounter Details Date Type Department Care Team (Latest Contact Info) Description 04/14/2021 Transcribe Orders Virtual Department 30 [place] [address] Susan Cerna PA 6 [facility] [place] [address] [place] [address] Encounter for laboratory testing for COVID-19 virus [...] Master's degree (e.g., MA, MS, Jong, MEd, COWLMAN, RAD) 11/08/2020 Comments No Sex and Gender [...] this encounter Results * COVID-19 PCR Order (04/19/2021 10:00 AM EDT) COVID Testing Status Specimen received in analyzing lab. Results should be available within 24 to 48 hrs. [facility] Symptomatic? NO [facility] Other 04/19/2021 10:0 0 AM EDT 04/19/2021 11:35 AM EDT us Susan GRIFFIN BODY FLUIDS AND STOOLS LYNNE RYAN Final Result [facility] 30 [place] [address] [facility] [address] [place] [address] documented in this encounter Visit Diagnoses Diagnosis [...] documented as of this encounter Care Teams Data Processing Manager Relationship Specialty Start Date End Date Susan Cerna PA 6 [place] [address] PCP - General 11/11/20 02/04/22 Susan Cerna PA 6 [place] [address] PCP - General 02/05/22 documented as of this encounter Additional Source Comments The information contained in this document represents components of the legal health record. It is not the complete legal health record.[facility]
--- OUTSIDE RECORDS SUMMARY | 2025-04-30 14:22 | XMS_ITS | Encounter Summary ---
Author Organization [facility] Address [address] [facility] [address] [place] [address] Phone Care Team Providers Care Coal Picker Name Role Phone Susan Cerna Primary Care Provider [phone] Susan Cerna Primary Care Provider [phone] Encounter Details Date Type Department Care Team (Late st Contact Info) Description 03/23/2021 Procedure Pass [facility], [address] [address] Social History Tobacco Use Types Packs/Day Years Used Date Smoking Tobacco: Never Smokeless Tobacco: Never Alcohol Use Standard Drinks/Week Comments No 0 (1 standard drink = 0.6 oz pur e alcohol) Education Answer Date Recorded What is the highest level of school you have completed or the highest degree you have received? Master's degree (e.g., MA, MS, Jong, MEd, COUNTY HEALTH OFFICER, RAD) 11/08/2020 Comments No Sex and Gender [...] documented in the COVID-19 PCR/PRO order 03/14/2021 03/14/202103/29/2021 1:22 AM E DT CoV-Exposed Comment:Recent close [...] documented as of this encounter Care Teams Coal Picker Relationship Specialty Start Date End Date Susan Cerna PA 6 [place] [address] PCP - General 11/11/20 02/04/22 Susan Cerna PA 6 [place] [address] PCP - General 02/05/22 documented as of this encounter Additional Source Comments The information contained in this document represents components of the legal health record. It is not the complete legal health record.[facility]
--- OUTSIDE RECORDS SUMMARY | 2025-04-30 14:22 | XMS_ITS | Encounter Summary ---
Author Organization [facility] Address [address] [address] Phone Care Team Providers Care Education Rn Name Role Phone Susan Cerna Primary Care Provider [phone] Susan Cerna Primary Care Provider [phone] Encounter Details Date Type Department Care Team (Late st Contact Info) Description 03/27/2021 Transcribe Orders Virtual Department 30 [place] [address] Royer Ross, DO [address] [facility] [place] [address] [place] [address] [email or web address] Encounter for laboratory testing for COVID-19 virus [...] Master's degree (e.g., MA, MS, Jong, MEd, FINANCIAL AID ADVISOR, RAD) 11/08/2020 Comments No Sex and Gender [...] this encounter Results * COVID-19 PCR Order (03/27/2021 3:30 PM EDT) COVID Testing Status Specimen received in analyzing lab. Results should be available within 24 to 48 hrs. [facility] Symptomatic? NO [facility] Other (Nasal swab) 03/27/2021 3:30 PM EDT 03/27/2021 5:51 PM EDT us Royer A Bigda DO BODY FLUIDS AND STOOLS ORDERABLE S Final Result [facility] 30 [place] [address] [facility] [address] [place] [address] documented in this encounter Visit Diagnoses Diagnosis [...] documented as of this encounter Care Teams Education Rn Relationship Specialty Start Date End Date Susan Cerna PA 6 [facility] [place] [address] PCP - General 5/7/21 7/31/22 Susan Cerna PA 6 [facility] [place] [address] PCP - General 02/05/22 documented as of this encounter Additional Source Comments The information contained in this document represents components of the legal health record. It is not the complete legal health record.[facility]
--- OUTSIDE RECORDS SUMMARY | 2025-04-30 14:22 | XMS_ITS | Encounter Summary ---
Author Organization [facility] Address [address] [facility] [address] [place] [address] Phone Care Team Providers Care Corporate Meeting Planner Name Role Phone Susan Cerna Primary Care Provider [phone] Susan Cerna Primary Care Provider Encounter Details Date Type Department Care Team (Latest Contact Info) Description 04/28/2021 Transcribe Orders Virtual Department 30 [place] [address] Susan Cerna PA 6 [facility] [place] [address] Sore throat (Primary Dx); Muscle ache; Runny nose Social History Tobacco Use Types Packs/Day Years Used Date Smoking Tobacco: Never Smokeless Tobacco: Never Alcohol Use Standard Drinks/Week Comments No 0 (1 standard drink = 0.6 oz pur e alcohol) Education Answer Date Recorded What is the highest level of school you have completed or the highest degree you have received? Master's degree (e.g., MA, MS, Jong, MEd, SOFTWARE RELEASE ENGINEER, RAD) 11/08/2020 Comments No Sex and Gender [...] this encounter Results * COVID-19 PCR Order (04/28/2021 1:15 PM EDT) COVID Testing Status Specimen received in analyzing lab. Results should be available within [address] [facility] Symptomatic? YES [facility] Other 04/28/2021 1:15 PM EDT 04/28/2021 5:32 PM EDT Susan GRIFFIN BODY FLUIDS AND STOOLS LYNNE RYAN Final Result [facility] 30 [place] [address] [facility] [address] [place] [address] documented in this encounter Visit Diagnoses Diagnosis Sore throat- Primary Acute pharyngitis Muscle ache Unspecified myalgia and myositis Runny nose Other diseases of nasal cavity and sinuses documented in this encounter Additional Health Concerns [...] documented as of this encounter Care Teams Corporate Meeting Planner Relationship Specialty Start Date End Date Susan Cerna PA 6 [place] [address] PCP - General 11/11/20 02/04/22 Susan Cerna PA 6 [place] [address] PCP - General 02/05/22 documented as of this encounter Additional Source Comments The information contained in this document represents components of the legal health record. It is not the complete legal health record.[facility]
--- OUTSIDE RECORDS SUMMARY | 2025-04-30 14:22 | XMS_ITS | Encounter Summary ---
Author Organization [facility] Address [address] [facility] [address] [place] [address] Phone Care Team Providers Care Shop Hand Name Role Phone Susan Cerna Primary Care Provider [phone] Susan Cerna Primary Care Provider [phone] Encounter Details Date Type Department Care Team (Latest Contact Info) Description 03/29/2021 Transcribe Orders Virtual Department 30 [place] [address] Susan Cerna PA [address] [facility] [place] [address] Encounter for laboratory testing for COVID-19 virus [...] Master's degree (e.g., MA, MS, Jong, MEd, AMPOULE SEALER, RAD) 11/08/2020 Comments No Sex and Gender [...] this encounter Results * COVID-19 PCR Order (03/30/2021 11:15 AM EDT) COVID Testing Status Specimen received in analyzing lab. Results should be available within [address] [facility] Symptomatic? NO [facility] Other (Nasal swab) 03/30/2021 11:15 AM EDT 03/30/2021 11:31 AM EDT Susan GRIFFIN BODY FLUIDS AND STOOLS LYNNE RYAN Final Result [facility] 30 [place] [address] [facility] [address] [place] [address] documented in this encounter Visit Diagnoses Diagnosis [...] documented as of this encounter Care Teams Shop Hand Relationship Specialty Start Date End Date Susan Cerna PA [address] [facility] [place] [address] PCP - General 11/11/20 02/04/22 Susan Cerna PA 6 [facility] [place] [address] PCP - General 02/05/22 documented as of this encounter Additional Source Comments The information contained in this document represents components of the legal health record. It is not the complete legal health record.[facility]
--- OUTSIDE RECORDS SUMMARY | 2025-04-30 14:22 | XMS_ITS | Encounter Summary ---
Author Organization [facility] Address [address] [facility] [address] [place] [address] Phone Care Team Providers Care Manager Logistic Name Role Phone Susan Cerna Primary Care Provider [phone]- [phone] Susan Cerna Primary Care Provider [phone]- [phone] Encounter Details Date Type Department Care Team (Late st Contact Info) Description 03/23/2021 Ancillary Orders Virtual Department 30 [place] [address] Susan Cerna PA 6 [facility] [place] [address] Breast screening Social History Tobacco Use Types Packs/Day Years Used Date Smoking Tobacco: Never Smokeless Tobacco: Never Alcohol Use Standard Drinks/Week Comments No 0 (1 standard drink = 0.6 oz pur e alcohol) Education Answer Date Recorded What is the highest level of school you have completed or the highest degree you have received? Master's degree (e.g., MA, MS, Jong, MEd, NEON TUBE BENDER, RAD) 11/08/2020 Comments No Sex and Gender [...] The breast tissue is almost entirely fat. Susan GRIFFIN IMG MG EXAMS Final Resul t documented [...] documented as of this encounter Care Teams Manager Logistic Relationship Specialty Start Date End Date Susan Cerna PA 6 [place] [address] PCP - General 11/11/20 02/04/22 Susan Cerna PA 6 [place] [address] PCP - General 02/05/22 documented as of this encounter Additional Source Comments The information contained in this document represents components of the legal health record. It is not the complete legal health record.[facility]
--- OUTSIDE RECORDS SUMMARY | 2025-04-30 14:23 | XMS_ITS | Encounter Summary ---
Author Organization [facility] Address [address] [facility] [address] [place] [address] Phone Care Team Providers Care Motivational Speaker Name Role Phone Royer Ross DO Primary Care Provider [phone] Susan Cerna Primary Care Provider [phone] Susan Cerna Primary Care Provider Encounter Details Date Type Department Care Team (Late st Contact Info) Description 10/16/2017 Ancillary Orders Virtual Department 30 [place] [address] Myra Mishra PA-C [address] [place] [address] [email or web address] Right shoulder pain, unspecified chronicity; Rupture of right biceps tendon, initial encounter Social History Tobacco Use Types Packs/Day Years [...] Diagnoses Diagnosis Right shoulder pain, unspecified chronicity Rupture of right biceps tendon, initial encounter documented in this encounter Additional Health Concerns [...] documented as of this encounter Care Teams Motivational Speaker Relationship Specialty Start Date End Date Royer Ross DO PCP - General 04/25/17 11/10/20 Susan Cerna PA 6 [place] [address] PCP - General 11/11/20 02/04/22 Susan Cerna PA 6 [place] [address] PCP - General 02/05/22 documented as of this encounter Additional Source Comments The information contained in this document represents components of the legal health record. It is not the complete legal health record.[facility]
--- OUTSIDE RECORDS SUMMARY | 2025-04-30 14:23 | XMS_ITS | Encounter Summary ---
Author Organization [facility] Address [address] [facility] [address] [place] [address] Phone Care Team Providers Care Assistant Store Manager Sales Name Role Phone Susan Cerna Primary Care Provider [phone] Susan Cerna Primary Care Provider Encounter Details Date Type Department Care Team (Latest Contact Info) Description 06/05/2021 Transcribe Orders Virtual Department 30 [place] [address] Susan Cerna PA 6 [facility] [place] [address] Encounter for laboratory testing for COVID-19 virus [...] Master's degree (e.g., MA, MS, Jong, MEd, HORTICULTURALIST, RAD) 11/08/2020 Comments No Sex and Gender [...] this encounter Results * COVID-19 PCR Order (06/20/2021 12:45 PM EST) COVID Testing Status Specimen received in analyzing lab. Results should be available within 24 to 48 hrs. [facility] Symptomatic? NO [facility] Other 06/20/2021 12:4 5 PM EST 06/20/2021 5:49 PM EST Susan GRIFFIN BODY FLUIDS AND STOOLS ORDE RABLES Final Result Performing Organization Address City/[facility] Co de Phone Number [address] [address] [facility] [address] [place], [place] [id number] * COVID-19 PCR Order (06/08/2021 1:47 PM EST) COVID Testing Status Specimen received in analyzing lab. Results should be available within 24 to 48 hrs. [facility] Symptomatic? NO [facility] Other 06/08/2021 1:47 PM EST 06/08/2021 5:53 PM EST Susan GRIFFIN BODY FLUIDS AND STOOLS ORDE RABLES Final Result Performing Organization Address City/[facility] Co de Phone Number [address] [address] [facility] [address] [place] [address] documented in this encounter Visit Diagnoses Diagnosis [...] documented as of this encounter Care Teams Assistant Store Manager Sales Relationship Specialty Start Date End Date Tryba, Susan Gilmar, PA 6 [facility] [place] [address] PCP - General 11/11/20 02/04/22 Susan Cerna PA 6 [facility] [place] [address] PCP - General 02/05/22 documented as of this encounter Additional Source Comments The information contained in this document represents components of the legal health record. It is not the complete legal health record.[facility]
--- OUTSIDE RECORDS SUMMARY | 2025-04-30 14:23 | XMS_ITS | Encounter Summary ---
Author Organization [facility] Address [address] [facility] [address] [place] [address] Phone Care Team Providers Care Lookback Coordinator Name Role Phone Susan Cerna Primary Care Provider [phone] Encounter Details Date Type Department Care Team (Late st Contact Info) Description 12/18/2024 Procedure Pass [facility] 30 [place] [address] Social History Tobacco Use Types Packs/Day Years [...] degree you have received? Master's degree (e.g., WILFREDO, MS, Jong, MEd, SKIVER WELT END, RAD) 11/08/2020 Comments No Sex and Gender [...] on filedocumented in this encounter Care Teams Lookback Coordinator Relationship Specialty Start Date End Date Susan Cerna PA 6 [facility] [place] [address] PCP - General 02/05/22 documented as of this encounter Additional Source Comments The information contained in this document represents components of the legal health record. It is not the complete legal health record.[facility]
--- OUTSIDE RECORDS SUMMARY | 2025-04-30 14:23 | XMS_ITS | Encounter Summary ---
Author Organization [facility] Address [address] [facility] [address] [place] [address] Phone Care Team Providers Care Fuse Assembler Name Role Phone Susan Cerna Primary Care Provider [phone]- [phone] Encounter Details Date Type Department Care Team (Latest Contact Info) Description 05/15/2023 Transcribe Orders Virtual Department 30 [place] [address] Susan Cerna PA 6 [facility] [place] [address] Radiculopathy, cervical region (Primary Dx) Social History Tobacco Use Types [...] Master's degree (e.g., MA, MS, Jong, MEd, VEHICLE OPERATOR TECHNICIAN, RAD) 11/08/2020 Comments No Sex and [...] as of this encounter Visit Diagnoses Diagnosis Radiculopathy, cervical region- Primary Brachial neuritis or radiculitis nos documented in this encounter Care Teams Fuse Assembler Relationship Specialty Start Date End Date Susan Cerna PA 6 [facility] [place] [address] PCP - General 02/05/22 documented as of this encounter Additional Source Comments The information contained in this document represents components of the legal health record. It is not the complete legal health record.[facility]
--- OUTSIDE RECORDS SUMMARY | 2025-04-30 14:23 | XMS_ITS | Encounter Summary ---
Author Organization [facility] Address [address] [facility] [address] [place] [address] Phone Care Team Providers Care Veterinarian Helper Name Role Phone Susan Cerna Primary Care Provider [phone] Susan Cerna Primary Care Provider [phone] Encounter Details Date Type Department Care Team (Latest Contact Info) Description 07/11/2021 Transcribe Orders Virtual Department 30 [place] [address] Susan Cerna PA 6 [facility] [place] [address] Exposure to confirmed case of COVID-19 (Primary Dx) Social History Tobacco Use Types Packs/Day Years Used Date Smoking Tobacco: Never Smokeless Tobacco: Never Alcohol Use Standard Drinks/Week Comments No 0 (1 standard drink = 0.6 oz pur e alcohol) Education Answer Date Recorded What is the highest level of school you have completed or the highest degree you have received? Master's degree (e.g., MA, MS, Jong, MEd, RUG BACKING STENCILER, RAD) 11/08/2020 Comments No Sex and Gender [...] this encounter Results * COVID-19 PCR Order (07/17/2021 1:03 PM EST) COVID Testing Status Specimen received in analyzing lab. Results should be available within 24 to 48 hrs. [facility] Symptomatic? NO [facility] Other 07/17/2021 1:03 PM EST 07/17/2021 7:35 PM EST us Susan GRIFFIN BODY FLUIDS AND STOOLS LYNNE RYAN Final Result [facility] 30 [place] [address] [facility] [address] [place] [address] documented in this encounter Visit Diagnoses Diagnosis Exposure to confirmed case of COVID-19- Primary documented in this encounter Additional Health Concerns Infection Onset Date Last Indicated Resolved Time CoV-Exposed Comment:Positive COVID-19 07/11/2021 07/11/2021 07/18/2021 6:0 5 PM EST COVID-19 07/17/2021 07/17/2021 08/07/2021 1:23 AM EST documented as of this encounter Care Teams Veterinarian Helper Relationship Specialty Start Date End Date Susan Cerna PA 6 [place] [address] PCP - General 11/11/20 02/04/22 Susan Cerna PA 6 [place] [address] PCP - General 02/05/22 documented as of this encounter Additional Source Comments The information contained in this document represents components of the legal health record. It is not the complete legal health record.[facility]
--- OUTSIDE RECORDS SUMMARY | 2025-04-30 14:23 | XMS_ITS | Encounter Summary ---
Author Organization [facility] Address [address] [facility] [address] [place] [address] Phone Care Team Providers Care Furniture Assembly Supervisor Name Role Phone Susan Cerna Primary Care Provider Encounter Details Date Type Department Care Team (Latest Contact Info) Description 03/25/2023 Transcribe Orders Virtual Department 30 [place] [address] Susan Cerna PA [address] [facility] [place] [address] [place] [address] Left shoulder pain, unspecified chronicity (Primary Dx); Spondylosis without myelopathy or radiculopathy, cervical region Social History Tobacco Use Types Packs/Day Years [...] Master's degree (e.g., [employer], MS, Jong, MEd, CONTACT WORKER LITHOGRAPHY, RAD) 11/08/2020 Comments No Sex and Gender [...] as of this encounter Results * XR CERVICAL SPINE 2-3 VIEWS (03/28/2023 2:42 PM EDT) Anatomical Region Laterality Modality C-spine Computed Radiogr aphy 03/30/2023 11:4 0 PM EDT Impressions 03/30/2023 11:42 PM EDT Moderate cervical spine degenerative change, most pronounced at C4-C7. Narrative 03/30/2023 11:42 PM EDT XR CERVICAL SPINE 2-3 VIEWS COMPARISON: None FINDINGS: ALIGNMENT: 2 mm C3-4 anterolisthesis. 2 mm C4-5 retrolisthesis. Open-mouth view demonstrates normal alignment of the C1-C2 lateral masses. VERTEBRAE: Vertebral body heights preserved. DISCS: Disc height loss noted sclerosis and marginal osteophytes at C4-5, C5-6, and C6-7. FACETS: Facet and uncovertebral arthropathy at all levels. PARASPINAL SOFT TISSUES: Ossification the posterior nuchal ligament. Procedure Note Franki Forbes MD - 03/30/2023 XR CERVICAL SPINE 2-3 VIEWS COMPARISON: None FINDINGS: ALIGNMENT: 2 mm C3-4 anterolisthesis. 2 mm C4-5 retrolisthesis. Open-mouthview demonstrates normal alignment of the C1-C2 lateral masses. VERTEBRAE: Vertebral body heights preserved. DISCS: Disc height loss noted sclerosis and marginal osteophytes at C4-5,C5-6, and C6-7. FACETS: Facet and uncovertebral arthropathy at all levels. PARASPINAL SOFT TISSUES: Ossification the posterior nuchal ligament. IMPRESSION: Moderate cervical spine degenerative change, most pronounced at C4-C7. Susan Schafer Eryn GRIFFIN IMG XR SPINE Final Resul t * XR SHOULDER 2 VIEWS (LEFT) (03/28/2023 2:41 PM EDT) Anatomical Region Laterality Modality Shoulder Left Computed Radiogr aphy 03/30/2023 11:3 7 PM EDT Impressions 03/30/2023 11:40 PM EDT Moderate glenohumeral osteoarthritis. Possible post surgical changes from distal clavicular excision. Downsloping acromion with subacromial spur. Deltoid enthesopathy along the lateral aspect of the acromion. Narrative 03/30/2023 11:40 PM EDT XR SHOULDER 2 OR MORE VIEWS (LEFT) COMPARISON: MRI SHOULDER LT WO FINDINGS: BONE: Bones demineralized. No acute fracture or dislocation. GLENOHUMERAL JOINT: Moderate glenohumeral joint space narrowing with circumferential humeral head osteophyte formation. ACROMIOCLAVICULAR JOINT: Downsloping acromion. Possible post surgical changes from distal clavicular excision. Deltoid enthesopathy along the lateral aspect of the acromion. OTHER: Partially visualized cervical spine degenerative change. Procedure Note Franki Forbes MD - 03/30/2023 XR SHOULDER 2 OR MORE VIEWS (LEFT) COMPARISON: MRI SHOULDER LT WO FINDINGS: BONE: Bones demineralized. No acute fracture or dislocation. GLENOHUMERAL JOINT: Moderate glenohumeral joint space narrowing withcircumferential humeral head osteophyte formation. ACROMIOCLAVICULAR JOINT: Downsloping acromion. Possible post surgicalchanges from distal clavicular excision. Deltoid enthesopathy along thelateral aspect of the acromion. OTHER: Partially visualized cervical spine degenerative change. IMPRESSION: Moderate glenohumeral osteoarthritis. Possible post surgical changes from distal clavicular excision. Downsloping acromion with subacromial spur. Deltoid enthesopathy along thelateral aspect of the acromion. 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 It is not the complete legal health record.[facility]
--- OUTSIDE RECORDS SUMMARY | 2025-04-30 14:23 | XMS_ITS | Encounter Summary ---
Author Organization [facility] Address [address] [facility] [address] [place] [address] Phone Care Team Providers Care Accounts Payable Processor Name Role Phone Susan Cerna Primary Care Provider [phone] Susan Cerna Primary Care Provider [phone] Reason for Referral * Physical Therapy (Routine) - Closed Specialty Diagnoses / Procedures Referred By Donald t Referred To Contact Physical Therapy Diagnoses Encounter for rehabilitation Oni Holloway MD [address] [employer] [place] [address] Phone: tel: fax: [address] [address] Phone: tel: Referral ID Status Reason Start Date Expiration Date Visits Re quested Visits Authorized [id number] Closed 08/04/2021 07/07/2022 25 25 Encounter Details Date Type Department Care Team (Latest Contact Info) Description 08/04/2021 Transcribe Orders [facility] Services [address] [place] [address] Oni Holloway MD [address] [place] [address] Encounter for rehabilitation (Primary Dx) Social History Tobacco Use Types Packs/Day Years Used Date Smoking Tobacco: Never Smokeless Tobacco: Never Alcohol Use Standard Drinks/Week Comments No 0 (1 standard drink = 0.6 oz pur e alcohol) Education Answer Date Recorded What is the highest level of school you have completed or the highest degree you have received? Master's degree (e.g., [employer], MS, Jong, MEd, TAKE UP OPERATOR, RAD) 11/08/2020 Comments No Sex and Gender Information Value Date Recorded Sex Assigned at Not on file Legal Sex Female 9:50 PM EDT Gender Identity Not on file Sexual Orientation Not on file Occupation Industry Job Start Date Job End Date Nurse Not on file Not on file Not on file documented as of this encounter Plan of Treatment Scheduled Referrals Name Type Priority Associated Diagnoses Orde r Schedule Ambulatory referral to [facility] Physical Therapy Outpatient Referral Routine Encounter for rehabilitation Ordered: 08/04/2021 documented as of this encounter Visit Diagnoses Diagnosis Encounter for rehabilitation- Primary documented in this encounter Additional Health Concerns Infection Onset Date Last Indicated Resolved Time COVID-19 07/17/2021 07/17/2021 08/07/2021 1:23 AM EST documented as of this encounter Care Teams Accounts Payable Processor Relationship Specialty Start Date End Date Susan Cerna PA 6 [facility] [place] [address] PCP - General 11/11/20 02/04/22 Susan Cerna PA [address] [facility] [place] [address] PCP - General 02/05/22 documented as of this encounter Additional Source Comments The information contained in this document represents components of the legal health record. It is not the complete legal health record.[facility]
--- OUTSIDE RECORDS SUMMARY | 2025-04-30 14:23 | XMS_ITS | Encounter Summary ---
Author Organization [facility] Address [address] [facility] [address] [place] [address] Phone Care Team Providers Care Nurse First Aid Name Role Phone Royer Ross DO Primary Care Provider [phone] Susan Cerna Primary Care Provider [phone] Susan Cerna Primary Care Provider Encounter Details Date Type Department Care Team (Latest Contact Info) Description 10/15/2017 Transcribe Orders [facility] Laboratory [address] [place] [address] Oni Holloway MD [address] [place] [address] Pre-operative laboratory examination (Primary Dx) Social History Tobacco Use Types [...] documented as of this encounter Results * Urine culture (10/15/2017 1:09 PM EDT) Specimen Source/ Description URINE CLEAN CATCH URINE [facility] Special Requests None [facility] GRAM STAIN NO CELLS OR ORGANISMS [facility] Culture/Test >100,000 colony forming units per ml MIXED ANA (3 OR MORE COLONY TYPES) Culture indicates contamination . Please resubmit if necessary. [facility] Report Status 10/17/2017 FINAL [facility] Urine (Urine) 10/15/2017 1:0 9 PM EDT 10/15/2017 1:17 PM EDT Oni Holloway MD MICROBIOLOGY - GENERAL OR DERABLES Final Result Performing Organization Address [facility] de Phone Number [address] [address] * Urinalysis (10/15/2017 1:09 PM EDT) COLOR Yellow Yellow [facility] CLARITY Clear [facility] GLUCOSE Negative Negative [facility] BILI Negative Negative [facility] KETONES Negative Negative [facility] SPECIFIC GRAVITY 1.010 1.005 - 1.030 [facility] BLOOD Negative Negative [facility] PH 5.5 5.0 - 8.0 [facility] Protein-UA Negative Negative [facility] NITRITE Negative Negative [facility] Leukocyte esterase, ur Negative Negative [facility] Urine (Urine) 10/15/2017 1:0 9 PM EDT 10/15/2017 1:13 PM EDT Result [facility] Oni Holloway MD URINE ORDERABLES Final Re sult Performing Organization Address [facility] de Phone Number [address] [address] * PTT (10/15/2017 1:09 PM EDT) APTT 31.1 25.1 - 36.5 sec [facility] Comment:APTT response to unf ractionated heparin concentrations between 0.3 and 0.7 IU/mL is typically 54.0-94.0 seconds in uncomplicated cases. The Anti-Xa assay is the preferred method. Blood 10/15/2017 1:09 PM EDT 10/15/2017 1:11 PM EDT Oni Holloway MD LAB BLOOD ORDERABLES Sonya l Result Performing Organization Address City/[facility]/ZIP Co de Phone Number [address] [address] * PT-INR (10/15/2017 1:09 PM EDT) PT 11.9 10.2 - 12.9 sec [facility] INR 1.0 0.9 - 1.1 [facility] Comment:Therapeutic range fo r oral Vitamin K antagonists: 2.0-3.5 Blood 10/15/2017 1:09 PM EDT 10/15/2017 1:11 PM EDT Oni Holloway MD LAB BLOOD ORDERABLES Sonya l Result Performing Organization Address [facility] Co de Phone Number [address] [address] * (ABNORMAL) Glucose (10/15/2017 1:09 PM EDT) GLUCOSE 103(H) 70 - 99 mg/dL [facility] Blood 10/15/2017 1:09 PM EDT 10/15/2017 1:11 PM EDT Oni Holloway MD LAB BLOOD ORDERABLES Sonya l Result Performing Organization Address [facility] Co de Phone Number [address] [address] * Creatinine/eGFR (10/15/2017 1:09 PM EDT) CREATININE 0.70 0.5 - 1.5 mg/dL [facility] EGFR 95 >59 mL/min/1.7 3m2 [facility] Comment:If patient is black, multiply result by 1.159. The eGFR calculation has changed from the MDRD equation to the CKD-EPI equation as of September 10, 2017. Blood 10/15/2017 1:09 PM EDT 10/15/2017 1:11 PM EDT us Oni Holloway MD LAB BLOOD ORDERABLES Sonya estrada Result [facility] [address] [place] [address] * (ABNORMAL) CBC and differential (10/15/2017 1:09 PM EDT) WBC 9.56 3.40 - 11.20 K/uL [facility] RBC 4.98(H) 3.80 - 4.80 M/uL [facility] HGB 15.2(H) 12.0 - 15.0 g/dL [facility] HCT 44.8 36.0 - 46.0 % [facility] PLT 372 130 - 400 K/uL [facility] MCV 90.0 79.0 - 98.0 fL [facility] MCH 30.5 27.0 - 34.8 pg [facility] MCHC 33.9 31.5 - 36.0 g/dL [facility] RDW 13.0 10.8 - 14.6 % [facility] MPV 10.0 9.4 - 12.4 fl [facility] NRBC 0.00 /100 WBCs [facility] ABSOLUTE NRBC 0.00 K/uL [facility] DIFF METHOD Auto [facility] NEUTS 66.8 45.30 - 77.70 % [facility] LYMPHS 23.6 12.30 - 39.70 % [facility] MONOS 7.0 4.10 - 12.80 % [facility] EOS 1.7 0 - 7.2 % [facility] BASOS 0.6 0 - 2.80 % [facility] Granulocytes, immature (%) 0.3 0.0 - 0.9 % [facility] ABSOLUTE NEUTS 6.38 1.40 - 7.70 K/uL [facility] ABSOLUTE LYMPHS 2.26 0.60 - 3.20 K/uL [facility] ABSOLUTE MONOS 0.67(H) 0.11 - 0.59 K/uL [facility] ABSOLUTE EOS 0.16 0.01 - 0.50 K/uL [facility] ABSOLUTE BASOS 0.06 0.00 - 0.08 K/uL [facility] Granulocytes, immature 0.03 0.00 - 0.05 K/uL [facility] Blood 10/15/2017 1:09 PM EDT 10/15/2017 1:11 PM EDT Oni Holloway MD LAB BLOOD ORDERABLES Sonya l Result Performing Organization Address [facility] Co de Phone Number [address] [address] * BUN (10/15/2017 1:09 PM EDT) BUN 15 6 - 19 mg/dL [facility] Blood 10/15/2017 1:09 PM EDT 10/15/2017 1:11 PM EDT Oni Holloway MD LAB BLOOD ORDERABLES Sonya l Result Performing Organization Address [facility] Co de Phone Number [address] [address] * Electrolytes (10/15/2017 1:09 PM EDT) SODIUM 139 133 - 146 mmol/L [facility] POTASSIUM 3.7 3.3 - 5.1 mmol/L [facility] CHLORIDE 97 96 - 108 mmol/L [facility] CO2 29 21 - 35 mmol/L [facility] ANION GAP 17 10 - 20 mmol/L [facility] Blood 10/15/2017 1:09 PM EDT 10/15/2017 1:11 PM EDT Oni Holloway MD LAB BLOOD ORDERABLES Sonya l Result Performing Organization Address [facility] Co de Phone Number [address] [address] documented in this encounter Visit Diagnoses Diagnosis Pre-operative laboratory examination- Primary Pre-procedural laboratory examination documented in this encounter Additional Health Concerns [...] documented as of this encounter Care Teams Nurse First Aid Relationship Specialty Start Date End Date Royer Ross DO PCP - General 04/25/17 11/10/20 Susan Cerna PA 6 [place] [address] PCP - General 11/11/20 02/04/22 Susan Cerna PA 6 [place] [address] PCP - General 02/05/22 documented as of this encounter Additional Source Comments The information contained in this document represents components of the legal health record. It is not the complete legal health record.[facility]
--- OUTSIDE RECORDS SUMMARY | 2025-04-30 14:23 | XMS_ITS | Encounter Summary ---
Author Organization [facility] Address [address] [employer] [facility] [address] [place] [address] Phone Care Team Providers Care Overnight Stocker Name Role Phone Susan Cerna Primary Care Provider [phone] Encounter Details Date Type Department Care Team (Latest Contact Info) Description 06/14/2023 Transcribe Orders Virtual Department [address] [place] [address] Susan Cerna PA 6 [facility] [place] [address] Osteopenia, unspecified location (Primary Dx) Social History Tobacco Use Types [...] Master's degree (e.g., [place], MS, Jong, MEd, REHABILITATION MEDICINE PHYSICIAN, RAD) 11/08/2020 Comments No Sex and Gender [...] documented as of this encounter Results * BD DXA AXIAL (SPINE) WITH HIP (01/23/2024 11:01 AM EDT) Anatomical Region Laterality Modality Bone Density Bone Density 01/23/2024 11:0 0 AM EDT Impressions 01/23/2024 12:09 PM EDT Interpretation: Osteopenia. Narrative 01/23/2024 12:09 PM EDT Referred By: SUSAN CERNA Indications: Osteopenia Scanner: [employer] A with serial# of [id number] located at [facility] Bone Density Scan (DXA) 01/23/24 Details of [...] -2.5), or Osteoporosis (T-score <= -2.5). At [facility], T-scores are compared to peak bone density [...] Rajan Murphy MD - 01/23/2024 Referred By: SUSAN CERNA Indications: Osteopenia Scanner: [employer] with serial# of [id number] located at [facility] Bone Density Scan (DXA) 01/23/24 Details [...] -2.5), or Osteoporosis (T-score <= -2.5). At [facility], T-scores are compared to peak bone density [...] MD on 01/23/2024 12:09:13 IMPRESSION: Interpretation: Osteopenia. Susan GRIFFIN IMG BD BONE DENSITY DEXA Fi nal Result documented in this encounter Visit Diagnoses Diagnosis Osteopenia, unspecified location- Primary Osteopenia, unspecified location documented in this encounter Care Teams Overnight Stocker Relationship Specialty Start Date End Date Susan Cerna PA [address] [facility] [address] [place] [address] PCP - General 02/05/22 documented as of this encounter Additional Source Comments The information contained in this document represents components of the legal health record. It is not the complete legal health record.[facility]
--- OUTSIDE RECORDS SUMMARY | 2025-04-30 14:23 | XMS_ITS | Encounter Summary ---
Author Organization [facility] Address [address] [facility] [address] [place] [address] Phone Care Team Providers Care Asbestos Coverer Name Role Phone Royer Ross DO Primary Care Provider [phone] Susan Cerna Primary Care Provider [phone] Susan Cerna Primary Care Provider [phone] Reason for Referral * Physical Therapy (Routine) - Closed Specialty Diagnoses / Procedures Referred By Donald benson Referred To Contact Physical Therapy Diagnoses Encounter for rehabilitation System, Provider Not In, PhD [address] [address] Phone: tel: Referral ID Status Reason Start Date Expiration Date Visits Re quested Visits Authorized [id number] Closed 12/09/2017 06/08/2018 16 16 Encounter Details Date Type Department Care Team (Latest Contact Info) Description 11/29/2017 Transcribe Orders [facility] Rehabilitation Services [address] [place] [address] Mainor Roberts PA [facility] Priti Beltran [address] [address] Encounter for rehabilitation (Primary Dx) Social History [...] Diagnoses Orde r Schedule Ambulatory referral to [facility] Physical Therapy Outpatient Referral Routine Encounter for rehabilitation Ordered: 11/29/2017 documented as of this encounter Visit Diagnoses [...] documented as of this encounter Care Teams Asbestos Coverer Relationship Specialty Start Date End Date Royer Ross DO PCP - General 04/25/17 11/10/20 Susan Cerna PA [address] [place] [address] PCP - General 11/11/20 02/04/22 Susan Cerna PA [address] [place] [address] PCP - General 02/05/22 documented as of this encounter Additional Source Comments The information contained in this document represents components of the legal health record. It is not the complete legal health record.[facility]
--- OUTSIDE RECORDS SUMMARY | 2025-04-30 14:23 | XMS_ITS | Encounter Summary ---
Author Organization [facility] Address [address] [facility] [address] [place] [address] Phone Care Team Providers Care Irrigation Supervisor Name Role Phone Royer Ross DO Primary Care Provider [phone] Susan Cerna Primary Care Provider [phone] Susan Cerna Primary Care Provider [phone] Encounter Details Date Type Department Care Team (Late st Contact Info) Description 05/03/2020 Ancillary Orders Virtual Department [address] [place] [address] Chester Hickey MD [address] [place] [address] [email or web address] Hyperparathyroidism Social History Tobacco Use Types Packs/Day Years Used Date Smoking Tobacco: Never Smokeless Tobacco: Never Alcohol Use Standard Drinks/Week Comments No 0 (1 standard drink = 0.6 oz pur e alcohol) Comments No Sex and Gender Information Value Date Recorded Sex Assigned at Not on file Legal Sex Female 9:50 PM EDT Gender Identity Not on file Sexual Orientation Not on file documented as of this encounter Plan of Treatment Not on file documented as of this encounter Results * BD DXA SPINE AND HIP WITH FOREARM (05/31/2020 11:13 AM EST) Anatomical Region Laterality Modality Bone Density Bone Density 05/31/2020 12:5 7 PM EST Impressions 05/31/2020 12:59 PM EST Normal bone density. Narrative 05/31/2020 12:59 PM EST COMPARISON: None. BONE DENSITY FINDINGS: History: This is a 59-year-old postmenopausal female. Evaluation of the lumbar spine, left forearm and hips was performed and felt to be technically adequate. Total bone mineral density in the L1-L4 vertebral bodies was calculated at 1.078 gm/cm2 with a T-score of 0.3 falling within the WHO classification of normal. Z-score of 1.8. Total bone mineral density in the right hip was calculated at 0.846 gm/cm2 with a T-score of -0.8 falling within the WHO classification of normal. Z-score of 0.3. Total bone mineral density in the left hip was calculated at 0.834 gm/cm2 with a T-score of -0.9 falling within the WHO classification of normal. Z-score of 0.2. Total bone mineral density in the left forearm was calculated at 0.558 gm/cm2 with a T-score of -0.1 falling within the WHO classification of normal. Z-score of 1.3. Procedure Note Gaetano Perez MD - 05/31/2020 COMPARISON: None. BONE DENSITY FINDINGS: History: This is a 59-year-old postmenopausal female. Evaluation of the lumbar spine, left forearm and hips was performed andfelt to be technically adequate. Total bone mineral density in the L1-L4 vertebral bodies was calculated at1.078 gm/cm2 with a T-score of 0.3 falling within the WHO classificationof normal. Z- score of 1.8. Total bone mineral density in the right hip was calculated at 0.846 gm/mp6zita a T-score of -0.8 falling within the WHO classification of normal.Z-score of 0.3. Total bone mineral density in the left hip was calculated at 0.834 gm/mu0wzeb a T-score of -0.9 falling within the WHO classification of normal.Z-score of 0.2. Total bone mineral density in the left forearm was calculated at 0.558gm/cm2 with a T-score of -0.1 falling within the WHO classification ofnormal. Z-score of 1.3. IMPRESSION: Normal bone density. us Chester Hickey MD IMG BD BONE DENSITY DEXA Fi nal Result documented in this encounter Visit Diagnoses Diagnosis Hyperparathyroidism Hyperparathyroidism, unspecified Hyperparathyroidism Hyperparathyroidism, unspecified documented in this encounter Additional Health [...] documented as of this encounter Care Teams Irrigation Supervisor Relationship Specialty Start Date End Date Royer Ross DO [email or web address] PCP - General 04/25/17 11/10/20 Susan Cerna PA [address] [place] [address] PCP - General 11/11/20 02/04/22 Susan Cerna PA [address] [place] [address] PCP - General 02/05/22 documented as of this encounter Additional Source Comments The information contained in this document represents components of the legal health record. It is not the complete legal health record.[facility]
--- OUTSIDE RECORDS SUMMARY | 2025-04-30 14:23 | XMS_ITS | Encounter Summary ---
Author Organization [facility] Address [address] [facility] [address] [place] [address] Phone Care Team Providers Care Rn Enterostomal Name Role Phone Royer Ross DO Primary Care Provider [phone] Susan Cerna Primary Care Provider [phone] Susan Cerna Primary Care Provider [phone] Encounter Details Date Type Department Care Team (Latest Contact Info) Description 10/10/2017 Transcribe Orders Virtual Department 30 [place] [address] Oni Holloway MD [address] [place] [address] Primary osteoarthritis of left knee (Primary Dx); Essential hypertension, benign; Preoperative testing Social History Tobacco Use Types Packs/Day Years [...] documented as of this encounter Results * ECG 12-LEAD (10/15/2017 1:43 PM EDT) Ventricular Rate EKG/MIN 80 BPM [facility] Atrial Rate 80 BPM [facility] MI Interval 174 ms [facility] QRS Duration 76 ms [facility] QT Interval 358 ms [facility] QTC Interval 412 ms [facility] P [place] 8 degrees [facility] R Wave [place] -6 degrees [facility] T Wave [place] -10 degrees [facility] 10/15/2017 1:43 PM EDT 10/15/2017 5:54 PM EDT Narrative [facility] - 10/15/2017 5:54 PM EDT Normal sinus rhythm Minimal voltage criteria for LVH, may be normal variant Cannot rule out Inferior infarct , age undetermined Abnormal ECG When compared with ECG of 21-NOV-2016 08:40, Nonspecific T wave abnormality now evident in Lateral leads Questionable change in initial forces of Inferior leads Confirmed by SEBASTIAN PÉREZ MD ([id number]) on 10/15/2017 5:54:32 PM us Oni Holloway MD ECG ORDERABLES Final Res ult [facility] documented in this encounter Visit Diagnoses Diagnosis Primary osteoarthritis of left knee- Primary Essential hypertension, benign Preoperative testing Unspecified pre-operative examination Primary osteoarthritis of left knee Essential hypertension, benign Preoperative testing Unspecified pre-operative examination documented in this encounter Additional Health [...] documented as of this encounter Care Teams Rn Enterostomal Relationship Specialty Start Date End Date TeresaRoyer yuDO [email or web address] PCP - General 04/25/17 11/10/20 Susan Cerna PA 6 [facility] [address] PCP - General 11/11/20 02/04/22 Susan Cerna PA 6 [facility] [address] PCP - General 02/05/22 documented as of this encounter Additional Source Comments The information contained in this document represents components of the legal health record. It is not the complete legal health record.[facility]
--- OUTSIDE RECORDS SUMMARY | 2025-04-30 14:23 | XMS_ITS | Encounter Summary ---
Author Organization [facility] Address 399 [facility] [address] [place] [address] Phone Care Team Providers Care Fuel Quality Tech Name Role Phone Royer Ross DO Primary Care Provider [phone] Susan Cerna Primary Care Provider [phone] Susan Cerna Primary Care Provider Encounter Details Date Type Department Care Team (Late st Contact Info) Description 05/03/2020 Ancillary Orders [facility] [address] [place] [address] Salbador Ospina MD 22 [facility], [address] [place] [address] [email or web address] Breast screening Social History Tobacco Use Types [...] as of this encounter Visit Diagnoses Diagnosis Breast screening Breast screening, unspecified documented in [...] documented as of this encounter Care Teams Fuel Quality Tech Relationship Specialty Start Date End Date Royer Ross DO PCP - General 04/25/17 11/10/20 Susan Cerna PA 6 [place] [address] PCP - General 11/11/20 02/04/22 Susan Cerna PA 6 [place] [address] PCP - General 02/05/22 documented as of this encounter Additional Source Comments The information contained in this document represents components of the legal health record. It is not the complete legal health record.[facility]
--- OUTSIDE RECORDS SUMMARY | 2025-04-30 14:23 | XMS_ITS | Encounter Summary ---
Author Organization [facility] Address 399 [facility] [address] [place] [address] Phone Care Team Providers Care Geriatric Psychiatrist Name Role Phone Susan Cerna Primary Care Provider Encounter Details Date Type Department Care Team (Latest Contact Info) Description 05/28/2024 Transcribe Orders Virtual Department 30 [place] [address] Susan Cerna PA 6 [facility] [place] [address] Nonintractable headache, unspecified chronicity pattern, unspecified headache type (Primary Dx); Frontal sinus pain Social History Tobacco Use Types Packs/Day Years [...] Master's degree (e.g., MA, MS, Jong, MEd, MERCHANDISE MANAGER, RAD) 11/08/2020 Comments No Sex and Gender [...] as of this encounter Results * XR PARANASAL SINUSES 3 OR MORE VIEWS (05/28/2024 11:33 AM EST) Anatomical Region Laterality Modality Face Computed Radiogr aphy 05/28/2024 5:52 PM EST Impressions 05/29/2024 9:26 AM EST 4 views of the mandible and 5 views of the paranasal sinuses were performed. Nasal ring and dental fillings noted. No evidence of complete opacification or fluid level within the major paranasal sinuses. Mastoid air cells are clear. Minor leftward deviation of the nasal septum. No visualized mandibular fracture or focal osseous abnormality. No other incidental findings seen. Narrative 05/29/2024 9:26 AM EST CLINICAL HISTORY: Headache, facial pain. Procedure Note Rajan Murphy MD - 05/29/2024 CLINICAL HISTORY: Headache, facial pain. IMPRESSION: 4 views of the mandible and 5 views of the paranasal sinuses wereperformed. Nasal ring and dental fillings noted. No evidence of completeopacification or fluid level within the major paranasal sinuses. Mastoidair cells are clear. Minor leftward deviation of the nasal septum. Novisualized mandibular fracture or focal osseous abnormality. No otherincidental findings seen. Susan GRIFFIN IMG XR HEAD AND SHUNT SERIE S Final Result * XR MANDIBLE 4 OR MORE VIEWS (05/28/2024 11:32 AM EST) Anatomical Region Laterality Modality Face Computed Radiogr aphy 05/28/2024 5:52 PM EST Impressions 05/29/2024 9:26 AM EST 4 views of the mandible and 5 views of the paranasal sinuses were performed. Nasal ring and dental fillings noted. No evidence of complete opacification or fluid level within the major paranasal sinuses. Mastoid air cells are clear. Minor leftward deviation of the nasal septum. No visualized mandibular fracture or focal osseous abnormality. No other incidental findings seen. Narrative 05/29/2024 9:26 AM EST CLINICAL HISTORY: Headache, facial pain. Procedure Note Rajan Murphy MD - 05/29/2024 CLINICAL HISTORY: Headache, facial pain. IMPRESSION: 4 views of the mandible and 5 views of the paranasal sinuses wereperformed. Nasal ring and dental fillings noted. No evidence of completeopacification or fluid level within the major paranasal sinuses. Mastoidair cells are clear. Minor leftward deviation of the nasal septum. Novisualized mandibular fracture or focal osseous abnormality. No otherincidental findings seen. Susan GRIFFIN IMG XR HEAD AND SHUNT SERIE S Final Result documented in this encounter Visit Diagnoses Diagnosis Nonintractable headache, unspecified chronicity pattern, unspecified headache type- Primary Frontal sinus pain Nonintractable headache, unspecified chronicity pattern, unspecified headache type Frontal sinus pain Nonintractable headache, unspecified chronicity pattern, unspecified headache type Frontal sinus pain documented in this encounter Care Teams Geriatric Psychiatrist Relationship Specialty Start Date End Date Susan Cerna PA [address] [place] [address] [place] [address] PCP - General 02/05/22 documented as of this encounter Additional Source Comments The information contained in this document represents components of the legal health record. It is not the complete legal health record.[facility]
--- OUTSIDE RECORDS SUMMARY | 2025-04-30 14:24 | XMS_ITS | Encounter Summary ---
Author Organization [facility] Address 399 [facility] [address] [place] [address] Phone Care Team Providers Care Nutrition Professor Name Role Phone Royer Ross DO Primary Care Provider [phone] Susan Cerna Primary Care Provider [phone] Susan Cerna Primary Care Provider [phone] Encounter Details Date Type Department Care Team (Late st Contact Info) Description 07/04/2018 Transcribe Orders [facility] [address] [place] [address] Ady Abraham MD [facility] Priti Beltran [address] [address] Social History Tobacco Use Types Packs/Day Years [...] documented as of this encounter Care Teams Nutrition Professor Relationship Specialty Start Date End Date Royer Ross DO PCP - General 04/25/17 11/10/20 Susan Cerna PA 6 [facility] [place] [address] PCP - General 11/11/20 02/04/22 Susan Cerna PA 6 [facility] [place] [address] PCP - General 02/05/22 documented as of this encounter Additional Source Comments The information contained in this document represents components of the legal health record. It is not the complete legal health record.[facility]
--- OUTSIDE RECORDS SUMMARY | 2025-04-30 14:24 | XMS_ITS | Encounter Summary ---
Author Organization [facility] Address [address] [address] Phone Care Team Providers Care Cloud Software Engineer Name Role Phone Royer Ross DO Primary Care Provider [phone] Susan Cerna Primary Care Provider Susan Cerna Primary Care Provider Encounter Details Date Type Department Care Team (Late st Contact Info) Description 11/19/2018 Ancillary Orders Virtual Department 30 [place] [address] Royer Ross DO [address] [facility] [address] [place] [address] [email or web address] Breast screening Social History Tobacco Use Types [...] documented as of this encounter Care Teams Cloud Software Engineer Relationship Specialty Start Date End Date Royer Ross DO PCP - General 04/25/17 11/10/20 Susan Cerna PA 6 [facility] [place] [address] PCP - General 11/11/20 02/04/22 Susan Cerna PA 6 [facility] [place] [address] PCP - General 02/05/22 documented as of this encounter Additional Source Comments The information contained in this document represents components of the legal health record. It is not the complete legal health record.[facility]
--- OUTSIDE RECORDS SUMMARY | 2025-04-30 14:24 | XMS_ITS | Encounter Summary ---
Author Organization [facility] Address [address] [facility] [address] [place] [address] Phone Care Team Providers Care Ambulatory Care Coordinator Name Role Phone Royer Ross DO Primary Care Provider [phone] Susan Cerna Primary Care Provider [phone] Susan Cerna Primary Care Provider [phone] Encounter Details Date Type Department Care Team (Late st Contact Info) Description 07/04/2018 Transcribe Orders [facility] [address] [place] [address] Ady Abraham MD [facility] Priti Beltran [address] [address] Social History Tobacco Use Types Packs/Day Years [...] documented as of this encounter Care Teams Ambulatory Care Coordinator Relationship Specialty Start Date End Date Royer Ross DO PCP - General 04/25/17 11/10/20 Susan Cerna PA 6 [facility] [place] [address] PCP - General 11/11/20 02/04/22 Susan Cerna PA 6 [facility] [place] [address] PCP - General 02/05/22 documented as of this encounter Additional Source Comments The information contained in this document represents components of the legal health record. It is not the complete legal health record.[facility]
--- OUTSIDE RECORDS SUMMARY | 2025-04-30 14:24 | XMS_ITS | Encounter Summary ---
Author Organization [facility] Address 399 [facility] [address] [place] [address] Phone Care Team Providers Care Dipper Fish Name Role Phone Royer Ross DO Primary Care Provider [phone] Susan Cerna Primary Care Provider [phone] Susan Cerna Primary Care Provider [phone] Encounter Details Date Type Department Care Team (Late st Contact Info) Description 09/14/2020 Procedure Pass [facility], Ct Scan - [address] [address] Social History Tobacco Use Types Packs/Day Years [...] documented as of this encounter Care Teams Dipper Fish Relationship Specialty Start Date End Date Royer Ross DO [email or web address] PCP - General 04/25/17 11/10/20 Susan Cerna PA 6 [place] [address] PCP - General 11/11/20 02/04/22 Susan Cerna PA 6 [place] [address] PCP - General 02/05/22 documented as of this encounter Additional Source Comments The information contained in this document represents components of the legal health record. It is not the complete legal health record.[facility]
--- OUTSIDE RECORDS SUMMARY | 2025-04-30 14:24 | XMS_ITS | Encounter Summary ---
Author Organization [facility] Address [address] [facility] [address] [place] [address] Phone Care Team Providers Care Client Evaluator Name Role Phone Royer Ross DO Primary Care Provider [phone] Susan Cerna Primary Care Provider Susan Cerna Primary Care Provider Encounter Details Date Type Department Care Team (Latest Contact Info) Description 11/07/2020 Transcribe Orders [facility] Laboratory 30 [place] [address] Susan Cerna PA 6 [facility] [place] [address] Fatigue, unspecified type (Primary Dx) Social History Tobacco Use Types [...] on file documented as of this encounter Procedures Procedure Name Priority Date/Time Associated Diagnosis Comments Ehrlichia chaffeensis ([facility]ME) antibody Routine 11/07/2020 2:00 PM EDT Fatigue, unspecified type Anaplasma antibody, IgG Routine 11/08/19 2:00 PM EDT Fatigue, unspecified type IMMUNOGLOBULINS IGG, IGA, IGM Routine 11/07/2020 2:00 PM EDT Fatigue, unspecified type TIERA-GARCIA VIRUS (EBV) ANTIBODY PANEL Routine 11/07/2020 2:00 PM EDT Fatigue, unspecified type FREE T3 Routine 11/07/2020 2:00 PM EDT Fatigue, unspecified type documented in this encounter Results * Free T3 (11/07/2020 2:00 PM EDT) FREE T3 2.0 2.0 - 4.4 pg/mL [facility] Blood 11/07/2020 2:00 PM EDT 11/07/2020 2:05 PM EDT Susan GRIFFIN LAB BLOOD ORDERABLES Final Result [address] [address] * Ehrlichia chaffeensis (HME) antibody (11/07/2020 2:00 PM EDT) EHRLICHIA CHAFF (HME) AB, IGG <1:64 <1:64 [facility] [place] Comment: (NOTE) ADDITIONAL INFORMATION This test was developed using an analyte specific reagent. Its performance characteristics were determined by [facility] in a manner consistent with CLIA requirements. This test has not been cleared or approved by the U.S. Food and Drug Administration. Blood 11/07/2020 2:00 PM EDT 11/07/2020 2:05 PM EDT Susan GRIFFIN LAB BLOOD ORDERABLES Final Result Performing Organization Address City/Va Hospital/ZIP Co de Phone Number [facility] [address] [place] [address] * Immunoglobulins IgG, IgA, IgM (11/07/2020 2:00 PM EDT) IMMUNOGLOBULIN G 732 700 - 1,600 mg/dL [facility] IgA 146 70 - 400 mg/dL [facility] IMMUNOGLOBULIN M 73 40 - 230 mg/dL [facility] Blood 11/07/2020 2:00 PM EDT 11/07/2020 2:05 PM EDT us Susan GRIFFIN LAB BLOOD ORDERABLES Final Result Performing Organization Address [facility]/Va Hospital/[facility] Co de Phone Number [facility] [address] [place] [address] * (ABNORMAL) Tiera-Garcia Virus (EBV) serology (11/07/2020 2:00 PM EDT) Pathologist [facility] EBV VCA, IGG Positive Negative [facility] EBV VCA, IGM Positive(A) Negative [facility] [place] EB NUCLEAR AG ABS Positive Negative [facility] EBV AB PANEL INTERP SEE NOTE [facility] Comment: (NOTE) Results may suggest recovery or [...] antibodies indicates recent primary infection with EBV. Blood (Blood) 11/07/2020 2:0 0 PM EDT 11/07/2020 2:05 PM EDT us Susan GRIFFIN MICROBIOLOGY - GENERAL ORDE RABLES Final Result Performing Organization Address [facility] Hospital/[facility] Co de Phone Number [facility] [address] [place] [address] * Anaplasma antibody, IgG (11/07/2020 2:00 PM EDT) ANAPLASMA PHAGOCYTOPHILUM AB I <1:64 <1:64 [facility] Comment: (NOTE) ADDITIONAL INFORMATION This test was developed using an analyte specific reagent. Its performance characteristics were determined by [facility] in a manner consistent with CLIA requirements. This test has not been cleared or approved by the U.S. Food and Drug Administration. Blood 11/07/2020 2:00 PM EDT 11/07/2020 2:05 PM EDT Susan GRIFFIN LAB BLOOD ORDERABLES Final Result Performing Organization Address [facility] Hospital/[facility] Co de Phone Number [facility] [address] [place] [address] documented in this encounter Visit Diagnoses Diagnosis Fatigue, unspecified type- Primary documented in this encounter Additional Health [...] documented as of this encounter Care Teams Client Evaluator Relationship Specialty Start Date End Date TeresaRoyer yuDO [email or web address] PCP - General 04/25/17 11/10/20 Susan Cerna PA 6 [facility] [address] PCP - General 11/11/20 02/04/22 Susan Cerna PA 6 [facility] [address] PCP - General 02/05/22 documented as of this encounter Additional Source Comments The information contained in this document represents components of the legal health record. It is not the complete legal health record.[facility]
--- OUTSIDE RECORDS SUMMARY | 2025-04-30 14:24 | XMS_ITS | Encounter Summary ---
Author Organization [facility] Address [address] [address] Phone Care Team Providers Care Wearing Apparel Assembler Name Role Phone Royer Ross DO Primary Care Provider [phone] Susan Cerna Primary Care Provider Susan Cerna Primary Care Provider Encounter Details Date Type Department Care Team (Late st Contact Info) Description 09/08/2020 Transcribe Orders Virtual Department [address] [place] [address] Royer Ross DO [address] [facility] [place] [address] [place] [address] [email or web address] Chronic sinusitis, unspecified location (Primary Dx) Social History Tobacco [...] as of this encounter Visit Diagnoses Diagnosis Chronic sinusitis, unspecified location- Primary documented in this encounter Additional Health [...] documented as of this encounter Care Teams Wearing Apparel Assembler Relationship Specialty Start Date End Date Royer Ross DO PCP - General 04/25/17 11/10/20 Susan Cerna PA 6 [place] [address] PCP - General 11/11/20 02/04/22 Susan Cerna PA 6 [place] [address] PCP - General 02/05/22 documented as of this encounter Additional Source Comments The information contained in this document represents components of the legal health record. It is not the complete legal health record.[facility]
--- OUTSIDE RECORDS SUMMARY | 2025-04-30 14:24 | XMS_ITS | Encounter Summary ---
Author Organization [facility] Address [address] [facility] [address] [place] [address] Phone Care Team Providers Care Record Tabulating Clerk Name Role Phone Royer Ross DO Primary Care Provider [phone] Susan Cerna Primary Care Provider [phone] Susan Cerna Primary Care Provider [phone] Encounter Details Date Type Department Care Team (Late st Contact Info) Description 07/04/2018 Transcribe Orders [facility] [address] [place] [address] Ady Abraham MD [facility] Priti Beltran [address] [address] Social History Tobacco Use Types Packs/Day Years [...] documented as of this encounter Care Teams Record Tabulating Clerk Relationship Specialty Start Date End Date Royer Ross DO PCP - General 04/25/17 11/10/20 Susan Cerna PA 6 [facility] [place] [address] PCP - General 11/11/20 02/04/22 Susan Cerna PA 6 [facility] [place] [address] PCP - General 02/05/22 documented as of this encounter Additional Source Comments The information contained in this document represents components of the legal health record. It is not the complete legal health record.[facility]
--- OUTSIDE RECORDS SUMMARY | 2025-04-30 14:24 | XMS_ITS | Encounter Summary ---
Author Organization [facility] Address [address] [address] Phone Care Team Providers Care Business Services Coordinator Name Role Phone Royer Ross DO Primary Care Provider [phone] Susan Cerna Primary Care Provider [phone] Susan Cerna Primary Care Provider [phone] Reason for Referral * Physical Therapy (Routine) - Closed Specialty Diagnoses / Procedures Referred By Donald benson Referred To Contact Physical Therapy Diagnoses Encounter for rehabilitation Ady Sutherland MD [address] [place], [place] [address] Phone: tel: fax: [address] [address] Phone: tel: Referral ID Status Reason Start Date Expiration Date Visits Re quested Visits Authorized [id number] Closed 08/01/2018 07/07/2019 1 1 Encounter Details Date Type Department Care Team (Latest Contact Info) Description 07/04/2018 Transcribe Orders [facility] Services [address] [place] [address] Ady Abraham MD [address] [place] [address] Encounter for rehabilitation (Primary Dx) Social History [...] Diagnoses Orde r Schedule Ambulatory referral to [facility] Physical Therapy Outpatient Referral Routine Encounter for rehabilitation Ordered: 07/04/2018 documented as of this encounter Visit Diagnoses [...] documented as of this encounter Care Teams Business Services Coordinator Relationship Specialty Start Date End Date Royer Ross DO PCP - General 04/25/17 11/10/20 Susan Cerna PA 6 [facility] [place] [place] [address] PCP - General 11/11/20 02/04/22 Susan Cerna PA 6 [facility] [place] [place] [address] PCP - General 02/05/22 documented as of this encounter Additional Source Comments The information contained in this document represents components of the legal health record. It is not the complete legal health record.[facility]
--- OUTSIDE RECORDS SUMMARY | 2025-04-30 14:24 | XMS_ITS | Encounter Summary ---
Author Organization [facility] Address [address] [facility] [address] [place] [address] Phone Care Team Providers Care Truck Crane Operator Helper Name Role Phone Royer Ross DO Primary Care Provider [phone] Susan Cerna Primary Care Provider [phone] Susan Cerna Primary Care Provider [phone] Encounter Details Date Type Department Care Team (Late st Contact Info) Description 07/04/2018 Transcribe Orders [facility] [address] [place] [id number] Ady Abraham MD [facility] Priti Beltran [address] [address] Social History Tobacco Use Types Packs/Day Years [...] documented as of this encounter Care Teams Truck Crane Operator Helper Relationship Specialty Start Date End Date Royer Ross DO PCP - General 04/25/17 11/10/20 Susan Cerna PA 6 [facility] [place] [address] PCP - General 11/11/20 02/04/22 Susan Cerna PA 6 [facility] [place] [address] PCP - General 02/05/22 documented as of this encounter Additional Source Comments The information contained in this document represents components of the legal health record. It is not the complete legal health record.[facility]
--- OUTSIDE RECORDS SUMMARY | 2025-04-30 14:24 | XMS_ITS | Encounter Summary ---
Author Organization [facility] Address [address] [facility] [address] [place] [address] Phone Care Team Providers Care Distribution Center Administrator Name Role Phone Royer Ross DO Primary Care Provider [phone] Susan Cerna Primary Care Provider [phone] Susan Cerna Primary Care Provider Reason for Referral * MRI/CAT Scan - Closed Specialty Diagnoses / Procedures Referred By Contsanta t Referred To Contact Radiology Diagnoses Pyrexia of unknown origin Fever, unspecified Procedures CT Abdomen/Pelvis CHG CT SCAN,ABDOMENT AND PELVIS,W CONTRAST CHG CT SCAN,ABDOMENT AND PELVIS,COMBO CHG CT SCAN,ABDOMENT AND PELVIS,W/O CONTRAST Susan Cerna PA Phone: tel: fax: Referral ID Status Reason Start Date Expiration Date Visits Re quested Visits Authorized [id number] Closed 11/15/2020 12/14/2020 1 1 Encounter Details Date Type Department Care Team (Latest Contact Info) Description 11/10/2020 Transcribe Orders [facility] Department [address] [place] [address] Susan Cerna PA [address] [place] [address] [place] [address] Pyrexia of unknown origin (Primary Dx); Fever, unspecified Social History Tobacco Use Types Packs/Day Years Used Date Smoking Tobacco: Never Smokeless Tobacco: Never Alcohol Use Standard Drinks/Week Comments No 0 (1 standard drink = 0.6 oz pur e alcohol) Education Answer Date Recorded What is the highest level of school you have completed or the highest degree you have received? Master's degree (e.g., MA, MS, Jong, MEd, TECHNICAL SERVICES MANAGER, RAD) 11/08/2020 Comments No Sex and Gender Information Value Date Recorded Sex Assigned at Not on file Legal Sex Female 9:50 PM EDT Gender Identity Not on file Sexual Orientation Not on file Occupation Industry Job Start Date Job End Date Nurse Not on file Not on file Not on file documented as of this encounter Functional Status * Calculated C-SSRS Risk Score (Lifetime/Recent) Answer Date of Assessment Author No Risk Indicated 11/11/2020 9:42 AM EDT Jade Odonnell RN * [place] Suicide Severity Rating Scale (Screener/Recent Self-Report) Question Answer Date of Assessment Author 1. Wish to be (Past 1 Month) No 021 9:42 AM EDT Jade Santos RN 2. Non-Specific Active Suici alicia Thoughts (Past 1 Month) No 11/11/2020 9:42 AM EDT Laura Santos, ROMI 6. Suicidal Behavior (Lifetime) No 9:42 AM EDT Jade Santos RN documented as of this encounter Plan of Treatment Not on file documented as of this encounter Results * CT ABDOMEN/PELVIS WITH CONTRAST (11/16/2020 3:43 PM EDT) Anatomical Region Laterality Modality Abdomen, Pelvis Computed Tomogra phy 11/16/2020 3:45 PM EDT Impressions 11/16/2020 4:10 PM EDT 1. Small pericardial effusion which was not present on 11/14/2011. Clinical follow-up recommended. 2. No explanation for fever of unknown origin in the abdomen or pelvis. 3. Similar non-obstructing bilateral nephrolithiasis. Changes in the abdomen and pelvis compared with 11/14/2011. 4. No other significant Narrative 11/16/2020 4:10 PM EDT HISTORY: Fever of unknown origin. COMPARISON: CT abdomen/pelvis 11/14/2011. TECHNIQUE: CT abdomen and pelvis with IV and oral contrast. Multiplanar reformatted images generated. Automated exposure control utilized. FINDINGS: Lower thorax: Small pericardial effusion which was not present on 11/14/2011. GI: No marked bowel distention or evidence of bowel wall thickening. Multiple diverticula within the sigmoid colon. The appendix remains present in the right lower quadrant. No significant abnormalities of the appendix which appears unchanged from 11/14/2011. Liver/spleen: Stable tiny hypodense focus in the superior aspect of the lateral segment of the left lobe of the liver, very likely benign. Liver otherwise appears normal. Spleen appears normal. Previously demonstrated 1.4 cm cyst within the medial aspect of the spleen has mildly decreased in size currently measuring 1.2 cm in maximal diameter. It has a more crenulated appearance. Spleen otherwise normal. Pancreas/biliary: Pancreas appears normal. No biliary ductal dilatation. Adrenals/: Adrenals normal. Increase in size of a homogenous cyst with simple features in the lower pole of the left kidney. This measured 2.5 cm in maximal diameter and now measures 3.8 cm in maximal diameter. At least 2 small calculi are again demonstrated within the upper pole of the left kidney, largest measuring 3 mm. 5 mm calculus in an adjacent 4 mm calculus in the medial aspect of the right kidney near the junction of the interpolar region and lower pole appears stable. Kidneys enhance normally. No pelvocaliectasis. Ureters normal in caliber. Ureters bladder on distended. Uterus again appears to be surgically absent. No evidence of pelvic masses. Lymph node/lymphatics: No measurable lymphadenopathy. Cardiovascular: Portal vein patent. Abdominal aorta remains normal in caliber. Musculoskeletal: Similar evidence of pelvic floor laxity. No suspicious lytic or blastic lesions within the bones. Progressive degenerative disc and endplate changes at L4-L5 and L5-S1. Grade 1 spondylolisthesis of L4 on L5 is mildly progressed and likely due to severe facet arthropathy at this level. Severe facet arthropathy at L5-S1 and, to a lesser extent L3-L4. Procedure Note Say Hilton MD - 11/16/2020 HISTORY: Fever of unknown origin. COMPARISON: CT abdomen/pelvis 11/14/2011. TECHNIQUE: CT abdomen and pelvis with IV and oral contrast. Multiplanarreformatted images generated. Automated exposure control utilized. FINDINGS: Lower thorax: Small pericardial effusion which was not present on11/14/2011. GI: No marked bowel distention or evidence of bowel wall thickening.Multiple diverticula within the sigmoid colon. The appendix remainspresent in the right lower quadrant. No significant abnormalities of theappendix which appears unchanged from 11/14/2011. Liver/spleen: Stable tiny hypodense focus in the superior aspect of thelateral segment of the left lobe of the liver, very likely benign. Liverotherwise appears normal. Spleen appears normal. Previously demonstrated1.4 cm cyst within the medial aspect of the spleen has mildly decreased insize currently measuring 1.2 cm in maximal diameter. It has a morecrenulated appearance. Spleen otherwise normal. Pancreas/biliary: Pancreas appears normal. No biliary ductal dilatation. Adrenals/: Adrenals normal. Increase in size of a homogenous cyst withsimple features in the lower pole of the left kidney. This measured 2.5 cmin maximal diameter and now measures 3.8 cm in maximal diameter. At least2 small calculi are again demonstrated within the upper pole of the leftkidney, largest measuring 3 mm. 5 mm calculus in an adjacent 4 mm calculusin the medial aspect of the right kidney near the junction of theinterpolar region and lower pole appears stable. Kidneys enhance normally.No pelvocaliectasis. Ureters normal in caliber. Ureters bladder ondistended. Uterus again appears to be surgically absent. No evidence ofpelvic masses. Lymph node/lymphatics: No measurable lymphadenopathy. Cardiovascular: Portal vein patent. Abdominal aorta remains normal incaliber. Musculoskeletal: Similar evidence of pelvic floor laxity. No suspiciouslytic or blastic lesions within the bones. Progressive degenerative discand endplate changes at L4-L5 and L5-S1. Grade 1 spondylolisthesis of L4on L5 is mildly progressed and likely due to severe facet arthropathy atthis level. Severe facet arthropathy at L5-S1 and, to a lesser extentL3-L4. IMPRESSION: 1. Small pericardial effusion which was not present on 11/14/2011. Clinicalfollow- up recommended. 2. No explanation for fever of unknown origin in the abdomen or pelvis. 3. Similar non-obstructing bilateral nephrolithiasis. Changes in theabdomen and pelvis compared with 11/14/2011. 4. No other significant Susan GRIFFIN IMG CT ABD/PELVIS Final Res ult documented in this encounter Visit Diagnoses Diagnosis Pyrexia of unknown origin- Primary Fever, unspecified Fever, unspecified Pyrexia of unknown origin Fever, unspecified Fever, unspecified documented in this encounter Additional Health [...] documented as of this encounter Care Teams Distribution Center Administrator Relationship Specialty Start Date End Date Royer Ross DO PCP - General 04/25/17 11/10/20 Susan Cerna PA 6 [place] [address] PCP - General 11/11/20 02/04/22 Susan Cerna PA 6 [place] [address] PCP - General 02/05/22 documented as of this encounter Additional Source Comments The information contained in this document represents components of the legal health record. It is not the complete legal health record.[facility]
--- OUTSIDE RECORDS SUMMARY | 2025-04-30 14:24 | XMS_ITS | Encounter Summary ---
Author Organization [facility] Address [address] [address] Phone Care Team Providers Care Bessemer Bottom Maker Name Role Phone Royer Ross DO Primary Care Provider [phone] Susan Cerna Primary Care Provider [phone] Susan Cerna Primary Care Provider Reason for Referral * MRI/CAT Scan - Closed Specialty Diagnoses / Procedures Referred By Contsanta t Referred To Contact Radiology Diagnoses Chronic sinusitis, unspecified location Procedures CT Face CHG CT SCAN, FACE/JAW CONTRAST CHG CT SCAN,MAXILLOFACIAL AREA,W/O CONTRAST CHG CT SCAN, FACE/JAW CONTRAST CHG CT SCANS FACE/JAW COMBO Susan Cerna PA Phone: tel: fax: Referral ID Status Reason Start Date Expiration Date Visits Re quested Visits Authorized [id number] Closed 09/14/2020 10/11/2020 1 1 Encounter Details Date Type Department Care Team (Late st Contact Info) Description 09/14/2020 Ancillary Orders Virtual Department [address] [place] [address] Susan Cerna PA [address] [place] [address] [place] [address] Chronic sinusitis, unspecified location Social History Tobacco Use Types Packs/Day Years [...] as of this encounter Results * CT FACE (SINUS) WITHOUT CONTRAST (09/27/2020 2:28 PM EDT) Anatomical Region Laterality Modality Face Computed Tomogra phy 09/27/2020 2:53 PM EDT Impressions 09/27/2020 3:06 PM EDT 1. No significant sinus disease. 2. Moderate to severe nasal deviation to the left. Narrative 09/27/2020 3:06 PM EDT HISTORY: Pain, chronic sinusitis. COMPARISON: None. TECHNIQUE: A non-enhanced study performed of the paranasal sinuses. FINDINGS: Frontal sinuses: Clear. Nasoethmoidal: Moderate-severe nasal deviation to the left. Hypertrophy of the inferior nasal turbinate on the right. Mild hypertrophy of the inferior nasal terminate on the left. Narrowing of the left nasal airway due to nasal deviation and probably a probably mild mucosal thickening. Ethmoid air cells are clear bilaterally. Ostiomeatal complexes: Patent bilaterally. Maxillary sinuses: Traces of mucosal thickening in the inferior aspects of the maxillary sinuses. Maxillary sinuses are otherwise clear. Sphenoid sinus: Clear. Bones: No suspicious lytic or blastic lesions within the bones. Soft tissues: No evidence of soft tissue masses or focal fluid collections. Procedure Note Say Hilton MD - 09/27/2020 HISTORY: Pain, chronic sinusitis. COMPARISON: None. TECHNIQUE: A non-enhanced study performed of the paranasal sinuses. FINDINGS: Frontal sinuses: Clear. Nasoethmoidal: Moderate-severe nasal deviation to the left. Hypertrophy ofthe inferior nasal turbinate on the right. Mild hypertrophy of theinferior nasal terminate on the left. Narrowing of the left nasal airwaydue to nasal deviation and probably a probably mild mucosal thickening.Ethmoid air cells are clear bilaterally. Ostiomeatal complexes: Patent bilaterally. Maxillary sinuses: Traces of mucosal thickening in the inferior aspects ofthe maxillary sinuses. Maxillary sinuses are otherwise clear. Sphenoid sinus: Clear. Bones: No suspicious lytic or blastic lesions within the bones. Soft tissues: No evidence of soft tissue masses or focal fluidcollections. IMPRESSION: 1. No significant sinus disease. 2. Moderate to severe nasal deviation to the left. Susan GRIFFIN IMG CT HEAD/NECK Final Resu lt documented in this encounter Visit Diagnoses Diagnosis Chronic sinusitis, unspecified location Chronic sinusitis, unspecified location documented in this encounter Additional Health Concerns [...] documented as of this encounter Care Teams Bessemer Bottom Maker Relationship Specialty Start Date End Date Royer Ross DO PCP - General 04/25/17 11/10/20 Susan Cerna PA [address] [place] [address] PCP - General 11/11/20 02/04/22 Susan Cerna PA 6 [place] [address] PCP - General 02/05/22 documented as of this encounter Additional Source Comments The information contained in this document represents components of the legal health record. It is not the complete legal health record.[facility]
--- OUTSIDE RECORDS SUMMARY | 2025-04-30 14:24 | XMS_ITS | Encounter Summary ---
Author Organization [facility] Address [address] [facility] [address] [place] [address] Phone Care Team Providers Care Supervisor Toy Parts Former Name Role Phone Royer Ross DO Primary Care Provider [phone] Susan Cerna Primary Care Provider [phone] Susan Cerna Primary Care Provider [phone] Encounter Details Date Type Department Care Team (Late st Contact Info) Description 11/10/2020 Procedure [facility], Ct Scan - [address] [address] Social History Tobacco Use Types Packs/Day Years Used Date Smoking Tobacco: Never Smokeless Tobacco: Never Alcohol Use Standard Drinks/Week Comments No 0 (1 standard drink = 0.6 oz pur e alcohol) Education Answer Date Recorded What is the highest level of school you have completed or the highest degree you have received? Master's degree (e.g., MA, MS, Jong, MEd, HARDWOOD FLOOR REFINISHER, RAD) 11/08/2020 Comments No Sex and Gender [...] 9:42 AM EDT Jade Odonnell RN * [place] Suicide Severity Rating Scale (Screener/Recent Self-Report) Question Answer Date of Assessment Author 1. Wish to be (Past 1 Month) No 021 9:42 AM EDT Jade Santos RN 2. Non-Specific Active Suici alicia Thoughts (Past 1 Month) No 11/11/2020 9:42 AM EDT Laura Santos RN 6. Suicidal Behavior (Lifetime) No 9:42 AM [...] documented as of this encounter Care Teams Supervisor Toy Parts Former Relationship Specialty Start Date End Date Royer Ross DO PCP - General 04/25/17 11/10/20 Susan Cerna PA 6 [facility] [place] [address] PCP - General 11/11/20 02/04/22 Susan Cerna PA 6 [facility] [place] [address] PCP - General 02/05/22 documented as of this encounter Additional Source Comments The information contained in this document represents components of the legal health record. It is not the complete legal health record.[facility]
--- OUTSIDE RECORDS SUMMARY | 2025-04-30 14:24 | XMS_ITS | Encounter Summary ---
Author Organization [facility] Address [address] [address] Phone Care Team Providers Care Metal Buffer Name Role Phone Royer Ross DO Primary Care Provider [phone] Susan Cerna Primary Care Provider [phone] Susan Cerna Primary Care Provider [phone] Reason for Referral * Physical Therapy (Routine) - Closed Specialty Diagnoses / Procedures Referred By Donald benson Referred To Contact Physical Therapy Diagnoses Encounter for rehabilitation System, Provider Not In, PhD [id number] [place] [address] 30 [place] [address] Phone: tel: Referral ID Status Reason Start Date Expiration Date Visits Re quested Visits Authorized [id number] Closed 12/22/2018 06/20/2019 16 16 Encounter Details Date Type Department Care Team (Late st Contact Info) Description 12/18/2018 Transcribe Orders [facility] Rehabilitation Services [address] [place] [address] Royer Ross DO [address] [facility] [place] [address] [email or web address] Encounter for rehabilitation (Primary Dx) Social History [...] Procedure Name Priority Date/Time Associated Diagnosis Comments AMB REFERRAL TO [facility] PHYSICAL THERAPY Routine 12/23/2018 9:34 AM EDT Encounter for rehabilitation documented in this encounter Results * Ambulatory referral to [facility] Physical Therapy (12/23/2018 9:34 AM EDT) us Provider Not In System PhD AMB [facility] REFERRALS Fin al Result documented in this encounter Visit Diagnoses [...] documented as of this encounter Care Teams Metal Buffer Relationship Specialty Start Date End Date Royer Ross DO [email or web address] PCP - General 04/25/17 11/10/20 Susan Cerna PA [address] [place] [address] PCP - General 11/11/20 02/04/22 Susan Cerna PA 6 [facility] [place] [address] PCP - General 02/05/22 documented as of this encounter Additional Source Comments The information contained in this document represents components of the legal health record. It is not the complete legal health record.[facility]
--- OUTSIDE RECORDS SUMMARY | 2025-04-30 14:24 | XMS_ITS | Encounter Summary ---
Author Organization [facility] Address [address] [facility] [address] [place] [address] Phone Care Team Providers Care Sky Diver Name Role Phone Royer Ross DO Primary Care Provider [phone] Susan Cerna Primary Care Provider [phone] Susan Cerna Primary Care Provider Encounter Details Date Type Department Care Team (Late st Contact Info) Description 11/08/2020 Ancillary Orders Virtual Department [address] [place] [address] Susan Cerna PA [address] [place] [address] [place] [address] Cough Social History Tobacco Use Types Packs/Day Years Used Date Smoking Tobacco: Never Smokeless Tobacco: Never Alcohol Use Standard Drinks/Week Comments No 0 (1 standard drink = 0.6 oz pur e alcohol) Education Answer Date Recorded What is the highest level of school you have completed or the highest degree you have received? Master's degree (e.g., MA, MS, Jong, MEd, DIAMOND SETTER APPRENTICE, RAD) 11/08/2020 Comments No Sex and Gender [...] 9:42 AM EDT Jade Odonnell RN * [place] Suicide Severity Rating Scale (Screener/Recent Self-Report) Question [...] as of this encounter Results * XR CHEST PA AND LATERAL 2 VIEWS (11/09/2020 11:06 AM EDT) Anatomical Region Laterality Modality Chest Computed Radiogr aphy 11/09/2020 11:0 8 AM EDT Impressions 11/09/2020 11:12 AM EDT Somewhat limited study without evidence of acute cardiopulmonary disease. Narrative 11/09/2020 11:12 AM EDT TECHNIQUE: XR CHEST PA AND LATERAL 2 VIEWS COMPARISON: 11/01/2008 CLINICAL HISTORY: Cough FINDINGS: The lungs are slightly hypoexpanded which limits evaluation. Accounting for this, cardiomediastinal silhouette and pulmonary vasculature are likely within normal limits. There is no evidence of cardiac failure or infiltrate. Incidental note is made of prior right-sided shoulder tendon repair and mild kyphosis and moderate spondylosis of the thoracic spine. Procedure Note Hector Ross MD - 11/09/2020 TECHNIQUE: XR CHEST PA AND LATERAL 2 VIEWS COMPARISON: 11/01/2008 CLINICAL HISTORY: Cough FINDINGS: The lungs are slightly hypoexpanded which limits evaluation. Accountingfor this, cardiomediastinal silhouette and pulmonary vasculature arelikely within normal limits. There is no evidence of cardiac failure orinfiltrate. Incidental note is made of prior right-sided shoulder tendonrepair and mild kyphosis and moderate spondylosis of the thoracic spine. IMPRESSION: Somewhat limited study without evidence of acute cardiopulmonarydisease. Susan GRIFFIN IMG XR CHEST Final Resul t documented in this encounter Visit Diagnoses Diagnosis Cough Cough documented in this encounter Additional Health Concerns [...] documented as of this encounter Care Teams Sky Diver Relationship Specialty Start Date End Date Royer Ross DO PCP - General 04/25/17 11/10/20 Susan Cerna PA [address] [place] [address] PCP - General 11/11/20 02/04/22 Susan Cerna PA 6 [place] [address] PCP - General 02/05/22 documented as of this encounter Additional Source Comments The information contained in this document represents components of the legal health record. It is not the complete legal health record.[facility]
--- OUTSIDE RECORDS SUMMARY | 2025-04-30 14:24 | XMS_ITS | Encounter Summary ---
Author Organization [facility] Address [address] [place] [phone] Phone Care Team Providers Care Fitter Machinist Name Role Phone Susan Cerna Primary Care Provider [phone] Susan Cerna Primary Care Provider Encounter Details Date Type Department Care Team (Latest Contact Info) Description 08/16/2021 Transcribe Orders Virtual Department [address] [place] [address] Susan Cerna PA [address] [facility] [place] [address] Right hip pain (Primary Dx) Social History Tobacco Use Types Packs/Day Years Used Date Smoking Tobacco: Never Smokeless Tobacco: Never Alcohol Use Standard Drinks/Week Comments No 0 (1 standard drink = 0.6 oz pur e alcohol) Education Answer Date Recorded What is the highest level of school you have completed or the highest degree you have received? Master's degree (e.g., MA, MS, Jong, MEd, [employer]ION[employer] TEACHER, RAD) 11/08/2020 Comments No Sex and Gender [...] as of this encounter Results * XR PELVIS AP PLUS FROG OR OUTLET 2 VIEWS (09/06/2021 9:56 AM EST) Anatomical Region Laterality Modality Hip, Pelvis Computed Radiogr aphy 09/06/2021 10:1 5 AM EST Impressions 09/06/2021 10:18 AM EST Mild-moderate degenerative changes at the hips. Narrative 09/06/2021 10:18 AM EST HISTORY: Bilateral hip pain. COMPARISON: CT pelvis 11/16/2020 VIEWS: AP and frog-lateral views of the hips and pelvis. FINDINGS: Hips: Mild-moderate joint space narrowing and marginal spurring bilaterally. No flattening of the femoral heads. No suspicious lucencies or areas of sclerosis. No fractures, subluxations or dislocations. Other pelvis: Mild sclerosis at the SI joints which may be degenerative. Procedure Note Say Hilton MD - 09/06/2021 HISTORY: Bilateral hip pain. COMPARISON: CT pelvis 11/16/2020 VIEWS: AP and frog-lateral views of the hips and pelvis. FINDINGS: Hips: Mild-moderate joint space narrowing and marginal spurringbilaterally. No flattening of the femoral heads. No suspicious lucenciesor areas of sclerosis. No fractures, subluxations or dislocations. Other pelvis: Mild sclerosis at the SI joints which may be degenerative. IMPRESSION: Mild-moderate degenerative changes at the hips. Susan GRIFFIN IMG XR PELVIS Final Resul t documented in this encounter Visit Diagnoses Diagnosis Right hip pain- Primary Pain in joint, pelvic region and thigh Right hip pain Pain in joint, pelvic region and thigh documented in this encounter Care Teams Fitter Machinist Relationship Specialty Start Date End Date Susan Cerna PA [address] [place] [address] PCP - General 11/11/20 02/04/22 Susan Cerna PA [address] [place] [address] PCP - General 02/05/22 documented as of this encounter Additional Source Comments The information contained in this document represents components of the legal health record. It is not the complete legal health record.[facility]
[2025-04-30 18:37] LABS: Appearance Urine Clear; Glucose Urine UA Negative (Negative); PH 7.5 (5.0-9.0); Specific Gravity - Urine 1.015 (1.005-1.025); UMIC TRIGGER UACC YES
== END 2025-04-30 12:16 | disposition home or self-care (01) ==
LOC: HO.MANLDS 12:15
PROVIDERS: Visit Provider Physician Assistant
DX: N39.0 Urinary tract infection, site not specified (principal)
CPT/HCPCS: 81001